=== PATIENT | male | born 1960 | race African-American/Black ===

== ENCOUNTER 2017-12-01 12:44 | Emergency (ER) | payer MEDICAID ==
[~2017-12-01] VITALS: Ht 177.8 cm; Wt 63.5 kg
[~2017-12-01 12:44] MED LIST: ACETAMINOPHEN-1 EAC1 ORAL; ZOFRAN ODT4 MG ORAL
[2017-12-01] MEDS ORDERED: PANTOPRAZOLE SO40 MG ORAL (13:04)
[2017-12-01 13:51] LABS: BASOPHILS % (AUTO) 1.3 % (0.0-2.0); EOSINOPHILS % (AUTO) 3.1 % (0.0-3.0); HEMATOCRIT 41.3 % (42.0-52.0); HEMOGLOBIN 13.7 G/DL (14.2-18.0); LYMPHOCYTES % (AUTO) 11.3 % (20.0-45.0); MEAN CORPUSCULAR VOLUME 94 FL (80-99); MONOCYTES % (AUTO) 6.7 % (1.0-10.0); NEUTROPHILS % (AUTO) 77.6 % (45.0-75.0); PLATELET COUNT 316 K/UL (150-450); RED BLOOD COUNT 4.41 M/UL (4.70-6.10); RED CELL DISTRIBUTION WIDTH 12.3 % (11.6-14.8)
[2017-12-01 13:55] LABS: APPEARANCE,URINE CLEAR; BILIRUBIN, URINE NEGATIVE (NEGATIVE); GLUCOSE, URINE (UA) NEGATIVE (NEGATIVE); KETONES,URINE NEGATIVE (NEGATIVE); LEUKOCYTE ESTERASE ,URINE 1+ (NEGATIVE); NITRITE,URINE NEGATIVE (NEGATIVE); PH,URINE 6 (4.5-8.0); PROTEIN,URINE 2+ (NEGATIVE); UROBILINOGEN,URINE 1 MG/DL (0.0-1.0)
[2017-12-01 14:01] LABS: COLOR,URINE YELLOW
[2017-12-01 14:03] LABS: INR 1.1 (0.9-1.1)
[2017-12-01 14:04] LABS: ANION GAP 9 mmol/L (5-15); BLOOD UREA NITROGEN 19 mg/dL (7-18); CARBON DIOXIDE 27 MMOL/L (21-32); CHLORIDE 101 MMOL/L (98-107); CREATININE 0.8 MG/DL (0.55-1.30); POTASSIUM 4.2 MMOL/L (3.5-5.1); SODIUM 137 MMOL/L (136-145)
[2017-12-01 14:08] LABS: ALANINE AMINOTRANSFERASE 58 U/L (12-78); ALBUMIN 2.8 G/DL (3.4-5.0); ALBUMIN/GLOBULIN RATIO 0.5 (1.0-2.7); ALKALINE PHOSPHATASE 124 U/L (46-116); ASPARTATE AMINO TRANSFERASE 33 U/L (15-37); BILIRUBIN,TOTAL 0.6 MG/DL (0.2-1.0)
[2017-12-01] MEDS ORDERED: ACETAMINOPHEN-1 EAC1 ORAL (14:30)
[2017-12-01] MEDS ORDERED: REGLAN10 MG ORAL (14:30)
[2017-12-01 14:35] VITALS: BP 128/70
--- NOTE | 2017-12-01 14:53 | Emergency Room Report ---
History of Present Illness General Chief Complaint: General Complaint Source: Patient Present Illness HPI The patient is a 57-year-old male presenting for several months of generalized complaints including myalgia, fatigue, decreased appetite, 1 episode of diarrhea , and mild abdominal discomfort. He states that the abdominal pain is intermittent and described as a 5 out of 10 dull ache. Primarily to the mid upper abdomen. He denies any provoking or relieving factors. He states that he traveled to [place] in September 2017 and then developed a cough. He states that this cough lasted for approximately 6 weeks. He was placed on an antibiotic but does not recall what it was. He states the abdominal pain began after the coughing. He was seen in this emergency department one week prior where testing was done including ultrasound and CT of the abdomen. There were signs associated with gastroenteritis. He was discharged home but states that the general symptoms have remained. He denies symptoms including fever, chills, night sweats, cough, diarrhea, constipation, melena, hematochezia Allergies: Coded Allergies: No Known Allergies (Unverified , 11/23/17) Patient History Past Medical History: see triage record Pertinent Family History: none Reviewed Nursing Documentation: PMH: Agreed; PSxH: Agreed Review of Systems All Other Systems: negative except mentioned in HPI Physical Exam Vital Signs Date Time Temp Pulse Resp B/P (MAP) Pulse Ox O2 Delivery O2 Flow Rate FiO2 12/01/17 13:00 98.0 72 17 134/80 96 Room Air 98.1 Sp02 EP Interpretation: reviewed, normal General Appearance: no apparent distress, alert, GCS 15, non-toxic Head: normocephalic, atraumatic Respiratory: chest non-tender, lungs clear, normal breath sounds, speaking full sentences Cardiovascular #1: regular rate, rhythm, no edema Gastrointestinal: normal inspection, normal bowel sounds, no mass, non- distended, tenderness - Mild RUQ Musculoskeletal: back normal, gait/station normal, normal range of motion, non- tender Neurologic: alert, oriented x3, responsive, motor strength/tone normal, sensory intact, speech normal Psychiatric: judgement/insight normal, memory normal, mood/affect normal, no suicidal/homicidal ideation Skin: normal color, no rash, warm/dry, well hydrated Medical Decision Making PA Attestation Dr. Hennessy is my supervising physician. Patient management was discussed with my supervising physician Diagnostic Impression: Primary Impression: Abdominal pain Qualified Codes: R10.9 - Unspecified abdominal pain ER Course The patient is a 57-year-old male presenting with generalized symptoms and abdominal pain Differential diagnosis considered not limited to: URI, pneumonia, cholecystitis , cholelithiasis, gastritis, appendicitis, UTI, gastroenteritis, major depression, among others Physical exam: Vitals are within normal limits. No apparent distress HEENT unremarkable Lungs are clear to auscultation bilaterally Abdomen is soft. Nondistended. Normal bowel sounds. There is slight tenderness to palpation to right upper quadrant and epigastric region. Skin warm and dry Labs show a slightly elevated white blood cell count as well as slightly elevated alkaline phosphatase. AST/ALT within normal limits Urinalysis unremarkable New abd imaging not done as he had both CT abd US 1 week prior. Admission to the hospital was discussed with the patient. He declines and states that he will follow-up with Dr. Mar tomorrow. He agrees to return to emergency department as soon as possible if he experiences symptoms including continued or worsening abdominal pain, fever, chills, melena, hematochezia, constipation, or for any other reason Laboratory Tests Test 12/01/17 13:17 12/01/17 13:20 Urine Color Yellow Urine Appearance Clear Urine pH 6 (4.5-8.0) Urine Specific [place] 1.010 (1.005-1.035) Urine Protein 2+ (NEGATIVE) H Urine Glucose (UA) Negative (NEGATIVE) Urine Ketones Negative (NEGATIVE) Urine Occult Blood 2+ (NEGATIVE) H Urine Nitrite Negative (NEGATIVE) Urine Bilirubin Negative (NEGATIVE) Urine Urobilinogen 1 MG/DL (0.0-1.0) H Urine Leukocyte Esterase 1+ (NEGATIVE) H Urine RBC 2-4 /HPF (0 - 0) H Urine WBC 0-2 /HPF (0 - 0) Urine Squamous Epithelial Cells Occasional /LPF Urine Bacteria Occasional /HPF (NONE) Urine Mucus Few /LPF (NONE/OCC) H White Blood Count 12.0 K/UL (4.8-10.8) H Red Blood Count 4.41 M/UL (4.70-6.10) L Hemoglobin 13.7 G/DL (14.2-18.0) L Hematocrit 41.3 % (42.0-52.0) L Mean Corpuscular Volume 94 FL (80-99) Mean Corpuscular Hemoglobin 31.0 PG (27.0-31.0) Mean Corpuscular Hemoglobin Concent 33.2 G/DL (32.0-36.0) Red Cell Distribution Width 12.3 % (11.6-14.8) Platelet Count 316 K/UL (150-450) Mean Platelet Volume 8.2 FL (6.5-10.1) Neutrophils (%) (Auto) 77.6 % (45.0-75.0) H Lymphocytes (%) (Auto) 11.3 % (20.0-45.0) L Monocytes (%) (Auto) 6.7 % (1.0-10.0) Eosinophils (%) (Auto) 3.1 % (0.0-3.0) H Basophils (%) (Auto) 1.3 % (0.0-2.0) Prothrombin Time 11.3 SEC (9.30-11.50) Prothrombin Time INR 1.1 (0.9-1.1) PTT 31 SEC (23-33) Sodium Level 137 MMOL/L (136-145) Potassium Level 4.2 MMOL/L (3.5-5.1) Chloride Level 101 MMOL/L (98-107) Carbon Dioxide Level 27 MMOL/L (21-32) Anion Gap 9 mmol/L (5-15) Blood Urea Nitrogen 19 mg/dL (7-18) H Creatinine 0.8 MG/DL (0.55-1.30) Estimate Glomerular Filtration Rate > 60 mL/min (>60) Glucose Level 130 MG/DL (74-106) H Calcium Level 10.0 MG/DL (8.5-10.1) Total Bilirubin 0.6 MG/DL (0.2-1.0) Aspartate Amino Transferase (AST) 33 U/L (15-37) Alanine Aminotransferase (ALT) 58 U/L (12-78) Alkaline Phosphatase 124 U/L (46-116) H Total Protein 8.5 G/DL (6.4-8.2) H Albumin 2.8 G/DL (3.4-5.0) L Globulin 5.7 g/dL Albumin/Globulin Ratio 0.5 (1.0-2.7) L Lipase 106 U/L (73-393) Lab Results Impression slight leukocytosis and elevated alk phos. AST/ALT WNL. Chest X-Ray Diagnostic Results Chest X-Ray Diagnostic Results : Chest X-Ray Ordered: Yes # of Views/Limited/Complete: 1 View Indication: Other - cough EP Interpretation: Yes DANIEL Xray: Interpretation reviewed, by supervising MD, and agrees with findings. Interpretation: no consolidation, no effusion, no pneumothorax, no acute cardiopulmonary disease Impression: No acute disease Electronically Signed by: Chaz Maharaj PA-C Last Vital Signs Date Time Temp Pulse Resp B/P (MAP) Pulse Ox O2 Delivery O2 Flow Rate FiO2 12/01/17 14:35 98.6 76 20 128/70 98 Room Air 98.6 Status: improved Disposition: HOME, SELF-CARE Condition: Improved Scripts Acetaminophen With Codeine (T#3) (TYLENOL #3 TAB*) Y Tab 1 TAB ORAL Q6HR PRN for For Pain, #10 TAB Prov: CHAZ MAHARAJ.A. 12/01/17 Metoclopramide Hcl* (REGLAN*) 10 Mg Tablet 10 MG ORAL THREE TIMES A DAY, #15 TAB Prov: CHAZ MAHARAJ P.A. 12/01/17 Patient Instructions: Abdominal Pain, Adult Additional Instructions: I discussed my findings with the patient. All questions and concerns have been answered. Treatment and medication compliance have been addressed. The patient said he will go to his PCP's office tomorrow. Return to ED if symptoms worsen, continue, new symptoms arise, or if needed for any reason. Patient verbalized understanding of discharge instructions. CHAZ MAHARAJ Dec 01, 2017 14:53
--- NOTE | 2017-12-02 11:42 | Diagnostic Imaging Report ---
Indication: Rest pain Technique: XRAY Chest 1v Comparison: None Findings: Heart size and mediastinal contours are within normal limits for technique. There is no focal consolidation, pneumothorax or pleural effusion. Degenerative change of the spine. Osseous structures demonstrate no acute abnormality. Impression: No radiographic evidence of acute cardiopulmonary disease.
== END 2017-12-01 14:35 | disposition home or self-care (01) ==
LOC: EMR 13:30
DX: R10.84 Generalized abdominal pain (principal)
CPT/HCPCS: 36415; 71045; 80053; 81003; 83690; 85025; 85610; 85730; 96374; 96375; 99284; J2405

== ENCOUNTER 2018-03-24 11:42 | Emergency (ER) | payer MEDICAID ==
[~2018-03-24] VITALS: Ht 177.8 cm; Wt 68.0 kg
[~2018-03-24 11:42] MED LIST changes: +PANTOPRAZOLE SO40 MG ORAL; +REGLAN10 MG ORAL
[2018-03-24 11:50] VITALS: BP 147/76
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
[2018-03-24] MEDS ORDERED: ROBAXIN500 MG PO (12:25)
[2018-03-24] MEDS ORDERED: IBUPROFEN600 MG ORAL (12:25)
[2018-03-24] MEDS ORDERED: LIDODERM700 M1 TOPIC (12:25)
[2018-03-24 12:59] VITALS: BP 147/76
== END 2018-03-24 13:00 | disposition home or self-care (01) ==
LOC: EMR 12:28
DX: S16.1XXA Strain of muscle, fascia and tendon at neck level, initial encounter (principal); V43.52XA Car driver injured in collision with other type car in traffic accident, initial encounter; Y93.89 Activity, other specified; Y92.411 Interstate highway as the place of occurrence of the external cause; R20.0 Anesthesia of skin; M62.830 Muscle spasm of back; R32 Unspecified urinary incontinence
CPT/HCPCS: 99283

== ENCOUNTER 2018-05-07 03:34 | Emergency (ER) | payer MEDICAID ==
[~2018-05-07] VITALS: Ht 170.2 cm; Wt 72.6 kg
[~2018-05-07 03:34] MED LIST changes: +IBUPROFEN600 MG ORAL; +LIDODERM700 M1 TOPIC; +ROBAXIN500 MG PO
[2018-05-07] MEDS ORDERED: Mylanta II UD 30ml ORAL ONE (04:00)
[2018-05-07] MEDS ORDERED: Lidocaine 2% Visc 15ml soln ORAL ONE (04:00)
[2018-05-07] MEDS ORDERED: Dicyclomine HCl 10mg/5ml oral soln ORAL ONE (04:00)
[2018-05-07 04:21] VITALS: BP 153/65
[2018-05-07 04:26] LABS: BASOPHILS % (AUTO) 1.1 % (0.0-2.0); EOSINOPHILS % (AUTO) 0.9 % (0.0-3.0); HEMATOCRIT 44.8 % (42.0-52.0); HEMOGLOBIN 15.3 G/DL (14.2-18.0); LYMPHOCYTES % (AUTO) 18.7 % (20.0-45.0); MEAN CORPUSCULAR VOLUME 93 FL (80-99); MONOCYTES % (AUTO) 5.1 % (1.0-10.0); NEUTROPHILS % (AUTO) 74.2 % (45.0-75.0); PLATELET COUNT 164 K/UL (150-450); RED BLOOD COUNT 4.82 M/UL (4.70-6.10); RED CELL DISTRIBUTION WIDTH 10.7 % (11.6-14.8); WHITE BLOOD COUNT 7.7 K/UL (4.8-10.8)
[2018-05-07 04:39] LABS: ANION GAP 12 mmol/L (5-15); BLOOD UREA NITROGEN 27 mg/dL (7-18); CALCIUM 9.2 MG/DL (8.5-10.1); CARBON DIOXIDE 26 MMOL/L (21-32); CHLORIDE 101 MMOL/L (98-107); CREATININE 0.9 MG/DL (0.55-1.30); POTASSIUM 3.2 MMOL/L (3.5-5.1); SODIUM 139 MMOL/L (136-145)
[2018-05-07 04:44] LABS: ALANINE AMINOTRANSFERASE 32 U/L (12-78); ALBUMIN 4.1 G/DL (3.4-5.0); ALBUMIN/GLOBULIN RATIO 1.2 (1.0-2.7); ALKALINE PHOSPHATASE 81 U/L (46-116); ASPARTATE AMINO TRANSFERASE 22 U/L (15-37); BILIRUBIN,TOTAL 0.6 MG/DL (0.2-1.0)
[2018-05-07 04:54] LABS: APPEARANCE,URINE CLEAR; BILIRUBIN, URINE NEGATIVE (NEGATIVE); COLOR,URINE PALE YELLOW; GLUCOSE, URINE (UA) NEGATIVE (NEGATIVE); KETONES,URINE 3+ (NEGATIVE); LEUKOCYTE ESTERASE ,URINE NEGATIVE (NEGATIVE); NITRITE,URINE NEGATIVE (NEGATIVE); PH,URINE 8 (4.5-8.0); PROTEIN,URINE NEGATIVE (NEGATIVE); UROBILINOGEN,URINE NORMAL MG/DL (0.0-1.0)
[2018-05-07] MEDS ORDERED: Sodium Chloride 500ML 500 ML IV ONE (05:00)
--- NOTE | 2018-05-07 05:27 | Emergency Room Report ---
History of Present Illness General Chief Complaint: Abdominal Pain Source: Patient, Medical Record Present Illness HPI Patient's 57-year-old male presented after increased generalized abdominal pain after eating spicy food. Patient had the reported having increased generalized pain he had prior history of gallbladder sludge. He denied any black or bloody stools. He had not been having difficulty with urination. He denied any shortness of breath. Allergies: Coded Allergies: No Known Allergies (Unverified , 11/23/17) Patient History Reviewed Nursing Documentation: PMH: Agreed; PSxH: Agreed Review of Systems All Other Systems: negative except mentioned in HPI Physical Exam Vital Signs Date Time Temp Pulse Resp B/P (MAP) Pulse Ox O2 Delivery O2 Flow Rate FiO2 05/07/18 03:47 98.5 77 25 152/62 98 Room Air 98.4 Sp02 EP Interpretation: reviewed, normal General Appearance: normal inspection, well appearing, no apparent distress, alert, GCS 15, non-toxic Head: atraumatic ENT: normal ENT inspection, hearing grossly normal, normal voice Neck: normal inspection, full range of motion, supple, no bony tend Respiratory: normal inspection, lungs clear, normal breath sounds, no respiratory distress, no retraction, no wheezing Cardiovascular #1: regular rate, rhythm, no edema Gastrointestinal: normal inspection, normal bowel sounds, non tender, soft, no guarding, no hernia Genitourinary: no CVA tenderness Musculoskeletal: normal inspection, back normal, normal range of motion Neurologic: normal inspection, alert, oriented x3, responsive, toll test worker III-XII nml as tested, speech normal Psychiatric: normal inspection, judgement/insight normal, mood/affect normal Skin: normal inspection, normal color, no rash Medical Decision Making Diagnostic Impression: Primary Impression: Abdominal pain Additional Impression: Gastritis ER Course Patient presented for abdominal pain. Differential diagnoses included ischemic bowel, appendicitis, perforated viscus, abdominal aortic aneurysm, inferior myocardial infarction, viral gastroenteritis. Because of complexity of patient' s case laboratory testing and imaging studies were ordered. The laboratory testing was unremarkable. Patient was given GI cocktail improvement in symptoms. Patient was given prescription for acid blockers. He is advised to avoid spicy food.The patient is advised to follow up with primary care doctor in 1-2 days. Patient is advised to return if any worsening condition or if any changes in status that are concerning. This report is dictated with [employer] grease buffer software which may occasionally lead to discrepancies related to use of this software. Labs Test 05/07/18 04:14 05/07/18 04:44 White Blood Count 7.7 K/UL (4.8-10.8) Red Blood Count 4.82 M/UL (4.70-6.10) Hemoglobin 15.3 G/DL (14.2-18.0) Hematocrit 44.8 % (42.0-52.0) Mean Corpuscular Volume 93 FL (80-99) Mean Corpuscular Hemoglobin 31.9 PG (27.0-31.0) Mean Corpuscular Hemoglobin Concent 34.3 G/DL (32.0-36.0) Red Cell Distribution Width 10.7 % (11.6-14.8) Platelet Count 164 K/UL (150-450) Mean Platelet Volume 10.2 FL (6.5-10.1) Neutrophils (%) (Auto) 74.2 % (45.0-75.0) Lymphocytes (%) (Auto) 18.7 % (20.0-45.0) Monocytes (%) (Auto) 5.1 % (1.0-10.0) Eosinophils (%) (Auto) 0.9 % (0.0-3.0) Basophils (%) (Auto) 1.1 % (0.0-2.0) Sodium Level 139 MMOL/L (136-145) Potassium Level 3.2 MMOL/L (3.5-5.1) Chloride Level 101 MMOL/L (98-107) Carbon Dioxide Level 26 MMOL/L (21-32) Anion Gap 12 mmol/L (5-15) Blood Urea Nitrogen 27 mg/dL (7-18) Creatinine 0.9 MG/DL (0.55-1.30) Estimat Glomerular Filtration Rate > 60 mL/min (>60) Glucose Level 154 MG/DL (74-106) Calcium Level 9.2 MG/DL (8.5-10.1) Total Bilirubin 0.6 MG/DL (0.2-1.0) Aspartate Amino Transf (AST/SGOT) 22 U/L (15-37) Alanine Aminotransferase (ALT/SGPT) 32 U/L (12-78) Alkaline Phosphatase 81 U/L (46-116) Troponin I 0.016 ng/mL (0.000-0.056) Total Protein 7.6 G/DL (6.4-8.2) Albumin 4.1 G/DL (3.4-5.0) Globulin 3.5 g/dL Albumin/Globulin Ratio 1.2 (1.0-2.7) Lipase 115 U/L (73-393) Urine Color Pale yellow Urine Appearance Clear Urine pH 8 (4.5-8.0) Urine Specific [place] 1.015 (1.005-1.035) Urine Protein Negative (NEGATIVE) Urine Glucose (UA) Negative (NEGATIVE) Urine Ketones 3+ (NEGATIVE) Urine Blood Negative (NEGATIVE) Urine Nitrite Negative (NEGATIVE) Urine Bilirubin Negative (NEGATIVE) Urine Urobilinogen Normal MG/DL (0.0-1.0) Urine Leukocyte Esterase Negative (NEGATIVE) Last Vital Signs Date Time Temp Pulse Resp B/P (MAP) Pulse Ox O2 Delivery O2 Flow Rate FiO2 05/07/18 04:21 98.4 63 25 153/65 98 Room Air 98.4 Status: improved Disposition: HOME, SELF-CARE Condition: Stable Scripts Dicyclomine Hcl* (DICYCLOMINE HCL*) 10 Mg Capsule 10 MG PO QID, #30 CAP Prov: Javier Wilson MD 05/07/18 Pantoprazole* (PANTOPRAZOLE*) 40 Mg Tablet. 40 MG ORAL DAILY, #30 TAB Prov: Javier Wilson MD 05/07/18 Referrals: [facility],REFERRING (PCP) Javier Wilson MD May 07, 2018 05:27
[2018-05-07] MEDS ORDERED: PANTOPRAZOLE SO40 MG ORAL (05:41)
[2018-05-07] MEDS ORDERED: DICYCLOMINE HCL10 MG PO (05:41)
[2018-05-07 05:45] VITALS: BP 153/65
== END 2018-05-07 05:45 | disposition home or self-care (01) ==
LOC: EMR 03:49
DX: K29.70 Gastritis, unspecified, without bleeding (principal)
CPT/HCPCS: 36415; 80053; 81003; 83690; 84484; 85025; 93005; 96374; 99284; J2405; J7040; J8499

== ENCOUNTER 2018-06-27 00:34 | Emergency (ER) | payer MEDICAID ==
[~2018-06-27] VITALS: Ht 177.8 cm; Wt 68.0 kg
[~2018-06-27 00:34] MED LIST changes: +DICYCLOMINE HCL10 MG PO
[2018-06-27 00:45] VITALS: BP 164/68
--- NOTE | 2018-06-27 00:59 | Emergency Room Report ---
History of Present Illness General Chief Complaint: Abdominal Pain Source: Patient Present Illness HPI Is a 57-year-old male with a history of gastric reflux. He takes omeprazole. He had endoscopy and colonoscopy done already. He presents with chief complaint abdominal pain. Onset tonight. Sharp in nature. One episode vomiting. No fever or chills. Pain is crampy sharp. Vomiting is nonbloody. Denies any other complaint. Pain is 7 out of 10. Allergies: Coded Allergies: No Known Allergies (Unverified , 11/23/17) Patient History Past Medical History: see triage record, old chart reviewed Past Surgical History: other Pertinent Family History: none Social History: Denies: smoking Immunizations: other Reviewed Nursing Documentation: PMH: Agreed; PSxH: Agreed Nursing Documentation-PMH Past Medical History: No History, Except For Review of Systems Eye: Denies: eye pain, blurred vision ENT: Denies: ear pain, nose congestion, throat swelling Respiratory: Denies: cough, shortness of breath Cardiovascular: Denies: chest pain, palpitations Gastrointestinal: Reports: abdominal pain, nausea, vomiting; Denies: diarrhea Musculoskeletal: Denies: back pain, joint pain Skin: Denies: rash Neurological: Denies: headache, numbness Endocrine: Denies: increased thirst, increased urine Hematologic/Lymphatic: Denies: easy bruising All Other Systems: negative except mentioned in HPI Physical Exam Vital Signs Date Time Temp Pulse Resp B/P (MAP) Pulse Ox O2 Delivery O2 Flow Rate FiO2 06/27/18 00:39 97.5 63 16 163/80 100 Room Air vitals with high blood pressure Sp02 EP Interpretation: reviewed, normal General Appearance: well appearing, no apparent distress, alert Head: normocephalic, atraumatic Eyes: bilateral eye PERRL, bilateral eye EOMI ENT: hearing grossly normal, normal pharynx Neck: full range of motion, supple, no meningismus Respiratory: chest non-tender, lungs clear, normal breath sounds Cardiovascular #1: regular rate, rhythm, no murmur Gastrointestinal: normal bowel sounds, no mass, no organomegaly, no bruit, non- distended, abnormal bowel sounds - Hyperactive, tenderness - Mild Musculoskeletal: back normal, gait/station normal, normal range of motion Psychiatric: mood/affect normal Skin: warm/dry Medical Decision Making Diagnostic Impression: Primary Impression: Abdominal pain Qualified Codes: R10.84 - Generalized abdominal pain Additional Impression: Nausea & vomiting Qualified Codes: R11.2 - Nausea with vomiting, unspecified ER Course Patient presents with abdominal pain with nausea and vomiting. Based on exam, he'll probably have diarrhea later. No evidence of an acute abdomen or obstruction. He felt better now. We'll discharge home. Lab Results Impression labs are normal Last Vital Signs Date Time Temp Pulse Resp B/P (MAP) Pulse Ox O2 Delivery O2 Flow Rate FiO2 06/27/18 00:39 97.5 63 16 163/80 100 Room Air Status: improved Disposition: HOME, SELF-CARE Condition: Stable Scripts Ondansetron (Zofran) 4 Mg Tablet 4 MG ORAL Q6H PRN for Nausea & Vomiting, #10 TAB 0 Refills Prov: Wesley Costello MD 06/27/18 Referrals: Fabiano Mar MD (PCP) Patient Instructions: Abdominal Pain, Adult Additional Instructions: Follow-up with your doctor in 2-3 days if not better. Return if symptom worsen. Wesley Costello MD Jun 27, 2018 00:59
[2018-06-27] MEDS ORDERED: Ketorolac 30mg Inj IV ONE (01:00)
[2018-06-27 01:17] LABS: BILIRUBIN, URINE NEGATIVE (NEGATIVE); COLOR,URINE PALE YELLOW; EOSINOPHILS % (AUTO) 1.5 % (0.0-3.0); GLUCOSE, URINE (UA) NEGATIVE (NEGATIVE); HEMOGLOBIN 15.3 G/DL (14.2-18.0); KETONES,URINE 1+ (NEGATIVE); LEUKOCYTE ESTERASE ,URINE NEGATIVE (NEGATIVE); LYMPHOCYTES % (AUTO) 15.7 % (20.0-45.0); MEAN CORPUSCULAR VOLUME 92 FL (80-99); MONOCYTES % (AUTO) 4.5 % (1.0-10.0); NEUTROPHILS % (AUTO) 77.3 % (45.0-75.0); NITRITE,URINE NEGATIVE (NEGATIVE); PH,URINE 7 (4.5-8.0); PLATELET COUNT 166 K/UL (150-450); RED BLOOD COUNT 4.78 M/UL (4.70-6.10); RED CELL DISTRIBUTION WIDTH 10.8 % (11.6-14.8); UROBILINOGEN,URINE NORMAL MG/DL (0.0-1.0); WHITE BLOOD COUNT 8.8 K/UL (4.8-10.8)
[2018-06-27 01:26] LABS: APPEARANCE,URINE CLEAR; PROTEIN,URINE NEGATIVE (NEGATIVE)
[2018-06-27 01:27] LABS: ANION GAP 12 mmol/L (5-15); BLOOD UREA NITROGEN 23 mg/dL (7-18); CALCIUM 9.1 MG/DL (8.5-10.1); CARBON DIOXIDE 27 MMOL/L (21-32); CHLORIDE 101 MMOL/L (98-107); CREATININE 1.1 MG/DL (0.55-1.30); POTASSIUM 3.3 MMOL/L (3.5-5.1); SODIUM 139 MMOL/L (136-145)
[2018-06-27 01:32] LABS: ALANINE AMINOTRANSFERASE 27 U/L (12-78); ALBUMIN 3.8 G/DL (3.4-5.0); ALBUMIN/GLOBULIN RATIO 0.9 (1.0-2.7); ALKALINE PHOSPHATASE 83 U/L (46-116); ASPARTATE AMINO TRANSFERASE 26 U/L (15-37); BILIRUBIN,TOTAL 0.6 MG/DL (0.2-1.0)
[2018-06-27] MEDS ORDERED: ZOFRAN4 MG ORAL (01:52)
[2018-06-27 02:09] VITALS: BP 149/64
[2018-06-28] MEDS ORDERED: SUCRALFATE1 GM ORAL (02:39)
== END 2018-06-27 02:10 | disposition home or self-care (01) ==
LOC: EMR 00:49
DX: R10.9 Unspecified abdominal pain (principal); R11.2 Nausea with vomiting, unspecified
CPT/HCPCS: 36415; 80053; 81003; 83690; 85025; 96361; 96374; 96375; 99284; J1885; J2405

== ENCOUNTER 2018-06-28 00:32 | Emergency (ER) | payer MEDICAID ==
[~2018-06-28] VITALS: Ht 177.8 cm; Wt 68.0 kg
[~2018-06-28 00:32] MED LIST changes: +ZOFRAN4 MG ORAL
[2018-06-28 00:44] VITALS: BP 165/76
--- NOTE | 2018-06-28 00:54 | Emergency Room Report ---
History of Present Illness General Chief Complaint: Abdominal Pain Source: Patient Present Illness HPI Is a 57-year-old male with a history of GERD. He is taking a proton pump inhibitor already. He had endoscopy and colonoscopy done already. Previous CT scan done. He was seen here yesterday for this. Labs are unremarkable. Better after pain medication. He said symptom came back today. Epigastric area up to his chest. Burning sensation. No chest pain. No nausea no vomiting. No fever or chills. No diarrhea. Pain is 7 out of 10. Allergies: Coded Allergies: No Known Allergies (Unverified , 11/23/17) Patient History Past Medical History: see triage record, old chart reviewed Past Surgical History: other Pertinent Family History: none Social History: Denies: smoking Immunizations: other Reviewed Nursing Documentation: PMH: Agreed; PSxH: Agreed Review of Systems Eye: Denies: eye pain, blurred vision ENT: Denies: ear pain, nose congestion, throat swelling Respiratory: Denies: cough, shortness of breath Cardiovascular: Denies: chest pain, palpitations Gastrointestinal: Reports: abdominal pain; Denies: diarrhea, nausea, vomiting Musculoskeletal: Denies: back pain, joint pain Skin: Denies: rash Neurological: Denies: headache, numbness Endocrine: Denies: increased thirst, increased urine Hematologic/Lymphatic: Denies: easy bruising All Other Systems: negative except mentioned in HPI Physical Exam Vital Signs Date Time Temp Pulse Resp B/P (MAP) Pulse Ox O2 Delivery O2 Flow Rate FiO2 06/28/18 00:35 98.1 55 18 165/76 99 Room Air vitals normal except for htn Sp02 EP Interpretation: reviewed, normal General Appearance: well appearing, no apparent distress, alert Head: normocephalic, atraumatic Eyes: bilateral eye PERRL, bilateral eye EOMI ENT: hearing grossly normal, normal pharynx Neck: full range of motion, supple, no meningismus Respiratory: chest non-tender, lungs clear, normal breath sounds Cardiovascular #1: regular rate, rhythm, no murmur Gastrointestinal: normal bowel sounds, non tender, no mass, no organomegaly, no bruit, non-distended Musculoskeletal: back normal, gait/station normal, normal range of motion Psychiatric: mood/affect normal Skin: warm/dry Medical Decision Making Diagnostic Impression: Primary Impression: Abdominal pain Qualified Codes: R10.13 - Epigastric pain Additional Impression: Gastritis Qualified Codes: K29.00 - Acute gastritis without bleeding ER Course Patient presents with epigastric pain. This consistent with GERD. He's on a proton pump inhibitor already. No evidence of an acute abdomen. No evidence of obstruction or appendicitis. Patient is resting comfortably. Pain resolved. CT/MRI/US Diagnostic Results CT/MRI/US Diagnostic Results : Imaging Test Ordered: CT abdomen and pelvis Impression negative per radiologist Last Vital Signs Date Time Temp Pulse Resp B/P (MAP) Pulse Ox O2 Delivery O2 Flow Rate FiO2 06/28/18 00:44 55 18 Room Air 06/28/18 00:44 98.1 165/76 99 Status: improved Disposition: HOME, SELF-CARE Condition: Stable Scripts Sucralfate* (CARAFATE*) 1 Gm Tablet 1 GM ORAL FOUR TIMES A DAY, #30 TAB Prov: Wesley Costello MD 06/28/18 Additional Instructions: Follow-up with your Dr. in 2-3 days. Return if symptom worsen. Wesley Costello MD Jun 28, 2018 00:54
[2018-06-28] MEDS ORDERED: Mylanta II UD 30ml ORAL ONE (01:00)
[2018-06-28 02:18] VITALS: BP 152/74
[2018-06-28] MEDS ORDERED: SUCRALFATE1 GM ORAL (02:39)
[2018-06-28 02:44] VITALS: BP 148/76
[2018-06-28 02:45] VITALS: BP 148/76
== END 2018-06-28 02:48 | disposition home or self-care (01) ==
LOC: EMR 00:57
DX: K29.70 Gastritis, unspecified, without bleeding (principal); K21.9 Gastro-esophageal reflux disease without esophagitis
CPT/HCPCS: 74176; 99284

== ENCOUNTER 2018-06-29 03:26 | Inpatient (IN) | payer MEDICAID ==
[~2018-06-29] VITALS: Ht 177.8 cm; Wt 67.8 kg
[~2018-06-29 03:26] MED LIST changes: +SUCRALFATE1 GM ORAL
--- NOTE | 2018-06-29 03:57 | Emergency Room Report ---
History of Present Illness General Chief Complaint: Abdominal Pain Source: Patient Present Illness HPI This is the third night the patient is presented with abdominal pain. He also was evaluated in May for similar problem. Last night he had in the abdominal CT scan. He was also given Mylanta. He's been given medications been taking but it hasn't helped with the pain. He feels burning. Is vomiting. His mouth is dry at this time and is anxious and feels like he is dying. He has tingling of his hands and feet. Denies any vomiting of blood or melena. He does drink alcohol - wine with meals. He was given the diagnosis of gastritis. Pain is severe /10, epigastric, not radiating, burning, constant, not helped by meds. He has had endoscopy and colonoscopy and was told they were normal. CT from 06/28: Impression: Mild inflammatory changes of the root of the mesentery and around the tasia hepatis. The findings are nonspecific. The gallbladder is contracted. No inflammatory changes suggested of the pancreas. Clinical correlation is required. CT from 11/2107: Impression: Underdistention versus mild wall thickening of the transverse, descending and sigmoid colon. Mild nonspecific colitis not excluded. Clinical correlation recommended. No pericholecystic inflammatory changes. Gallbladder sludge demonstrated by ultrasound. Clinical correlation recommended. Hepatic cysts. Mildly prominent prostate and seminal vesicles. Correlation with PSA recommended. Further evaluation recommended as indicated. Had ultrasound in November which revealed + Henao's sign and gall bladder sludge, but no evidence of cholecystitis. No URI sy, sore throat, raw seafood, blood exposures, travel, ill contacts. Allergies: Coded Allergies: No Known Allergies (Unverified , 11/23/17) Patient History Past Medical History: see triage record Social History: Reports: alcohol use; Denies: smoking, drug use Social History Narrative from home Reviewed Nursing Documentation: PMH: Agreed; PSxH: Agreed Nursing Documentation-PMH Hx Gastrointestinal Problems: Yes - GERD Review of Systems All Other Systems: negative except mentioned in HPI Physical Exam Vital Signs Date Time Temp Pulse Resp B/P (MAP) Pulse Ox O2 Delivery O2 Flow Rate FiO2 06/29/18 03:46 97.9 80 16 140/80 98 Room Air Sp02 EP Interpretation: reviewed, normal General Appearance: GCS 15, moderate distress Head: normocephalic, atraumatic Eyes: bilateral eye normal inspection, bilateral eye PERRL ENT: dry mucus membranes Neck: supple Respiratory: chest non-tender, lungs clear, normal breath sounds Cardiovascular #1: regular rate, rhythm, no edema Cardiovascular #2: 2+ radial (R) Gastrointestinal: abnormal bowel sounds, guarding - epigastric area, tenderness , decreased bowel sounds Genitourinary: no CVA tenderness Musculoskeletal: digits/nails normal, normal range of motion, no calf tenderness Neurologic: oriented x3, grossly normal - with dffuse weakness Psychiatric: anxious Skin: no rash Medical Decision Making Diagnostic Impression: Primary Impression: Abdominal pain Qualified Codes: R10.13 - Epigastric pain Additional Impressions: Hepatitis Hypokalemia ER Course Patient presents with epigastric pain and vomiting. He's been seen in the past for similar. At this time there appears to be an element of hyperventilation. We need to exclude acute myocardial infarction at this time. Be treated with IV hydration, Zofran and a GI cocktail. Labs will be repeated this time. EKG normal. CXR unremarkable. Labs with normal WBC. ESR normal. UA with ketones. New elevated LFTs. CT and prior U/S reviewed. Still severe pain, now 9/10. Morphine ordered. Continued hydration. Patient improved, but still with epigastric, RUQ tenderness. Due to CT with mesenteric/portal inflammation and new elevated LFTs, patient admitted for further evaluation. Admit med Dr. Bruce. Laboratory Tests Test 06/29/18 04:00 06/29/18 04:50 White Blood Count 6.4 K/UL (4.8-10.8) Red Blood Count 4.98 M/UL (4.70-6.10) Hemoglobin 15.3 G/DL (14.2-18.0) Hematocrit 45.9 % (42.0-52.0) Mean Corpuscular Volume 92 FL (80-99) Mean Corpuscular Hemoglobin 30.7 PG (27.0-31.0) Mean Corpuscular Hemoglobin Concent 33.3 G/DL (32.0-36.0) Red Cell Distribution Width 11.0 % (11.6-14.8) L Platelet Count 178 K/UL (150-450) Mean Platelet Volume 10.2 FL (6.5-10.1) H Neutrophils (%) (Auto) 62.2 % (45.0-75.0) Lymphocytes (%) (Auto) 27.9 % (20.0-45.0) Monocytes (%) (Auto) 6.5 % (1.0-10.0) Eosinophils (%) (Auto) 2.4 % (0.0-3.0) Basophils (%) (Auto) 1.1 % (0.0-2.0) Erythrocyte Sedimentation Rate Pending Prothrombin Time 10.3 SEC (9.30-11.50) Prothrombin Time INR 1.0 (0.9-1.1) PTT 24 SEC (23-33) Sodium Level 138 MMOL/L (136-145) Potassium Level 3.1 MMOL/L (3.5-5.1) L Chloride Level 99 MMOL/L (98-107) Carbon Dioxide Level 24 MMOL/L (21-32) Anion Gap 15 mmol/L (5-15) Blood Urea Nitrogen 20 mg/dL (7-18) H Creatinine 0.9 MG/DL (0.55-1.30) Estimate Glomerular Filtration Rate > 60 mL/min (>60) Glucose Level 127 MG/DL (74-106) H Calcium Level 9.3 MG/DL (8.5-10.1) Total Bilirubin 1.1 MG/DL (0.2-1.0) H Direct Bilirubin 0.5 MG/DL (0.0-0.3) H Aspartate Amino Transferase (AST) 305 U/L (15-37) H Alanine Aminotransferase (ALT) 478 U/L (12-78) H Alkaline Phosphatase 205 U/L (46-116) H Total Creatine Kinase 126 U/L (26-308) Troponin I 0.014 ng/mL (0.000-0.056) Total Protein 8.5 G/DL (6.4-8.2) H Albumin 3.9 G/DL (3.4-5.0) Globulin 4.6 g/dL Albumin/Globulin Ratio 0.8 (1.0-2.7) L Lipase 175 U/L (73-393) Urine Color Pending Urine Appearance Pending Urine pH Pending Urine Specific [place] Pending Urine Protein Pending Urine Glucose (UA) Pending Urine Ketones Pending Urine Blood Pending Urine Nitrite Pending Urine Bilirubin Pending Urine Urobilinogen Pending Urine Leukocyte Esterase Pending EKG Diagnostic Results Rate: normal Rhythm: NSR ST Segments: no acute changes - voltage for LVH Rhythm Strip Diag. Results EP Interpretation: yes Rhythm: NSR, no PVC's, no ectopy Chest X-Ray Diagnostic Results Chest X-Ray Diagnostic Results : Chest X-Ray Ordered: Yes # of Views/Limited/Complete: 1 View Indication: Other EP Interpretation: Yes Interpretation: no consolidation, no effusion, no pneumothorax Impression: No acute disease Electronically Signed by: Electronically signed by Andrez Braun MD Last Vital Signs Date Time Temp Pulse Resp B/P (MAP) Pulse Ox O2 Delivery O2 Flow Rate FiO2 06/29/18 07:10 98.0 66 16 174/74 100 Room Air Status: improved Disposition: ADMITTED INPATIENT Condition: Serious Andrez Braun MD Jun 29, 2018 03:57
[2018-06-29] MEDS ORDERED: Mylanta II UD 30ml ORAL ONE (04:00)
[2018-06-29] MEDS ORDERED: Lidocaine 2% Visc 15ml soln ORAL ONE (04:00)
[2018-06-29 04:14] LABS: BASOPHILS % (AUTO) 1.1 % (0.0-2.0); EOSINOPHILS % (AUTO) 2.4 % (0.0-3.0); HEMATOCRIT 45.9 % (42.0-52.0); HEMOGLOBIN 15.3 G/DL (14.2-18.0); LYMPHOCYTES % (AUTO) 27.9 % (20.0-45.0); MEAN CORPUSCULAR VOLUME 92 FL (80-99); MONOCYTES % (AUTO) 6.5 % (1.0-10.0); NEUTROPHILS % (AUTO) 62.2 % (45.0-75.0); PLATELET COUNT 178 K/UL (150-450); RED BLOOD COUNT 4.98 M/UL (4.70-6.10); WHITE BLOOD COUNT 6.4 K/UL (4.8-10.8)
[2018-06-29 04:51] LABS: ANION GAP 15 mmol/L (5-15); BLOOD UREA NITROGEN 20 mg/dL (7-18); CALCIUM 9.3 MG/DL (8.5-10.1); CARBON DIOXIDE 24 MMOL/L (21-32); CHLORIDE 99 MMOL/L (98-107); CREATININE 0.9 MG/DL (0.55-1.30); POTASSIUM 3.1 MMOL/L (3.5-5.1); SODIUM 138 MMOL/L (136-145)
[2018-06-29 05:00] VITALS: BP 161/62
[2018-06-29] MEDS ORDERED: Morphine Sulfate 4mg/ml Inj (IV/IM USE ONLY) IVP ONE ×2 (05:00→09:45)
[2018-06-29 05:02] LABS: ALANINE AMINOTRANSFERASE 478 U/L (12-78); ALBUMIN 3.9 G/DL (3.4-5.0); ALBUMIN/GLOBULIN RATIO 0.8 (1.0-2.7); ALKALINE PHOSPHATASE 205 U/L (46-116); ASPARTATE AMINO TRANSFERASE 305 U/L (15-37); BILIRUBIN,TOTAL 1.1 MG/DL (0.2-1.0); CREATINE KINASE 126 U/L (26-308)
[2018-06-29 05:04] LABS: BILIRUBIN,DIRECT 0.5 MG/DL (0.0-0.3)
[2018-06-29 05:15] LABS: APPEARANCE,URINE CLEAR; BILIRUBIN, URINE NEGATIVE (NEGATIVE); COLOR,URINE PALE YELLOW; GLUCOSE, URINE (UA) NEGATIVE (NEGATIVE); KETONES,URINE 4+ (NEGATIVE); LEUKOCYTE ESTERASE ,URINE NEGATIVE (NEGATIVE); NITRITE,URINE NEGATIVE (NEGATIVE); PH,URINE 7 (4.5-8.0); PROTEIN,URINE NEGATIVE (NEGATIVE); UROBILINOGEN,URINE NORMAL MG/DL (0.0-1.0)
[2018-06-29 07:10] VITALS: BP 174/74
[2018-06-29] MEDS ORDERED: Morphine Sulfate 2mg/ml Inj IVP PRN (10:00)
[2018-06-29 10:15] VITALS: BP 174/83
[2018-06-29] MEDS: Enoxaparin 40mg Inj SUBQ SCH (10:39)
[2018-06-29 12:00] VITALS: BP 166/74
[2018-06-29] MEDS: HydrALAZINE 25mg tab ORAL PRN (13:08)
[2018-06-29] MEDS: traMADol 50mg tab ORAL PRN ×2 (13:09→23:13)
--- NOTE | 2018-06-29 15:00 | General Progress Note ---
Assessment/Plan Assessment/Plan GI CONSULT Assessment - Recurrent epigastric pain and RUQ TTP - sudden rise in LFT in few days - cholelithiasis - suspect biliary colic/passed stone Recommendations - follow symptoms - follow labs - Surgical evaluation - check HIDA - check hepatitis w/u Thank You Any Carolina MD Subjective Allergies: Coded Allergies: No Known Allergies (Unverified , 11/23/17) Objective Last 24 Hour Vital Signs Date Time Temp Pulse Resp B/P (MAP) Pulse Ox O2 Delivery O2 Flow Rate FiO2 06/29/18 13:08 166/74 06/29/18 12:00 98.9 65 18 166/74 (104) 98 06/29/18 10:31 62 174/83 06/29/18 10:19 Room Air 06/29/18 10:15 98.9 62 18 174/83 (113) 100 06/29/18 09:35 98.0 79 16 177/95 100 Room Air 06/29/18 07:10 98.0 66 16 174/74 100 Room Air 06/29/18 05:30 98.0 06/29/18 05:00 98.7 64 16 161/62 100 Room Air 06/29/18 04:00 80 16 Room Air 06/29/18 03:46 97.9 80 16 140/80 98 Room Air Laboratory Tests 06/29/18 04:00: White Blood Count 6.4, Red Blood Count 4.98, Hemoglobin 15.3, Hematocrit 45.9, Mean Corpuscular Volume 92, Mean Corpuscular Hemoglobin 30.7, Mean Corpuscular Hemoglobin Concent 33.3, Red Cell Distribution Width 11.0L, Platelet Count 178, Mean Platelet Volume 10.2H, Neutrophils (%) (Auto) 62.2, Lymphocytes (%) (Auto) 27.9, Monocytes (%) (Auto) 6.5, Eosinophils (%) (Auto) 2.4, Basophils (%) (Auto ) 1.1, Erythrocyte Sedimentation Rate 9, Prothrombin Time 10.3, Prothromb Time International Ratio 1.0, Activated Partial Thromboplast Time 24, Sodium Level 138, Potassium Level 3.1L, Chloride Level 99, Carbon Dioxide Level 24, Anion Gap 15, Blood Urea Nitrogen 20H, Creatinine 0.9, Estimat Glomerular Filtration Rate > 60, Glucose Level 127H, Calcium Level 9.3, Total Bilirubin 1.1H, Direct Bilirubin 0.5H, Aspartate Amino Transf (AST/SGOT) 305H, Alanine Aminotransferase (ALT/SGPT) 478H, Alkaline Phosphatase 205H, Total Creatine Kinase 126, Troponin I 0.014, Total Protein 8.5H, Albumin 3.9, Globulin 4.6, Albumin/Globulin Ratio 0.8L, Lipase 175 06/29/18 04:50: Urine Color Pale yellow, Urine Appearance Clear, Urine pH 7, Urine Specific [place] 1.005, Urine Protein Negative, Urine Glucose (UA) Negative, Urine Ketones 4+H, Urine Blood Negative, Urine Nitrite Negative, Urine Bilirubin Negative, Urine Urobilinogen Normal, Urine Leukocyte Esterase Negative 06/29/18 11:45: Urine Opiates Screen PositiveH, Urine Barbiturates Screen Negative, Phencyclidine (PCP) Screen Negative, Urine Amphetamines Screen Negative, Urine Benzodiazepines Screen Negative, Urine Cocaine Screen Negative, Urine Marijuana (THC) Screen Negative 06/29/18 13:40: Troponin I [Pending], Anti-Nuclear Antibody Screen [Pending], Anti- Mitochondrial Antibody [Pending], F-Actin IgG Antibody [Pending], Hepatitis B Surface Antigen [Pending], Hepatitis B Surface Antibody, Quant [Pending], Hepatitis C Antibody [Pending] Height (Feet): 5 Height (Inches): 8.00 Weight (Pounds): 160 Any Carolina MD Jun 29, 2018 15:00
--- NOTE | 2018-06-29 15:09 | Cardiac Electrophysiology PN ---
Subjective Subjective [id number] Objective Last 24 Hour Vital Signs Date Time Temp Pulse Resp B/P (MAP) Pulse Ox O2 Delivery O2 Flow Rate FiO2 06/29/18 13:08 166/74 06/29/18 12:00 98.9 65 18 166/74 (104) 98 06/29/18 10:31 62 174/83 06/29/18 10:19 Room Air 06/29/18 10:15 98.9 62 18 174/83 (113) 100 06/29/18 09:35 98.0 79 16 177/95 100 Room Air 06/29/18 07:10 98.0 66 16 174/74 100 Room Air 06/29/18 05:30 98.0 06/29/18 05:00 98.7 64 16 161/62 100 Room Air 06/29/18 04:00 80 16 Room Air 06/29/18 03:46 97.9 80 16 140/80 98 Room Air Laboratory Tests Test 06/29/18 04:00 06/29/18 04:50 06/29/18 11:45 06/29/18 13:40 White Blood Count 6.4 K/UL (4.8-10.8) Red Blood Count 4.98 M/UL (4.70-6.10) Hemoglobin 15.3 G/DL (14.2-18.0) Hematocrit 45.9 % (42.0-52.0) Mean Corpuscular Volume 92 FL (80-99) Mean Corpuscular Hemoglobin 30.7 PG (27.0-31.0) Mean Corpuscular Hemoglobin Concent 33.3 G/DL (32.0-36.0) Red Cell Distribution Width 11.0 % (11.6-14.8) L Platelet Count 178 K/UL (150-450) Mean Platelet Volume 10.2 FL (6.5-10.1) H Neutrophils (%) (Auto) 62.2 % (45.0-75.0) Lymphocytes (%) (Auto) 27.9 % (20.0-45.0) Monocytes (%) (Auto) 6.5 % (1.0-10.0) Eosinophils (%) (Auto) 2.4 % (0.0-3.0) Basophils (%) (Auto) 1.1 % (0.0-2.0) Erythrocyte Sedimentation Rate 9 MM/HR (0-20) Prothrombin Time 10.3 SEC (9.30-11.50) Prothromb Time International Ratio 1.0 (0.9-1.1) Activated Partial Thromboplast Time 24 SEC (23-33) Sodium Level 138 MMOL/L (136-145) Potassium Level 3.1 MMOL/L (3.5-5.1) L Chloride Level 99 MMOL/L (98-107) Carbon Dioxide Level 24 MMOL/L (21-32) Anion Gap 15 mmol/L (5-15) Blood Urea Nitrogen 20 mg/dL (7-18) H Creatinine 0.9 MG/DL (0.55-1.30) Estimat Glomerular Filtration Rate > 60 mL/min (>60) Glucose Level 127 MG/DL (74-106) H Calcium Level 9.3 MG/DL (8.5-10.1) Total Bilirubin 1.1 MG/DL (0.2-1.0) H Direct Bilirubin 0.5 MG/DL (0.0-0.3) H Aspartate Amino Transf (AST/SGOT) 305 U/L (15-37) H Alanine Aminotransferase (ALT/SGPT) 478 U/L (12-78) H Alkaline Phosphatase 205 U/L (46-116) H Total Creatine Kinase 126 U/L (26-308) Troponin I 0.014 ng/mL (0.000-0.056) Pending Total Protein 8.5 G/DL (6.4-8.2) H Albumin 3.9 G/DL (3.4-5.0) Globulin 4.6 g/dL Albumin/Globulin Ratio 0.8 (1.0-2.7) L Lipase 175 U/L (73-393) Urine Color Pale yellow Urine Appearance Clear Urine pH 7 (4.5-8.0) Urine Specific [place] 1.005 (1.005-1.035) Urine Protein Negative (NEGATIVE) Urine Glucose (UA) Negative (NEGATIVE) Urine Ketones 4+ (NEGATIVE) H Urine Blood Negative (NEGATIVE) Urine Nitrite Negative (NEGATIVE) Urine Bilirubin Negative (NEGATIVE) Urine Urobilinogen Normal MG/DL (0.0-1.0) Urine Leukocyte Esterase Negative (NEGATIVE) Urine Opiates Screen Positive (NEGATIVE) H Urine Barbiturates Screen Negative (NEGATIVE) Phencyclidine (PCP) Screen Negative (NEGATIVE) Urine Amphetamines Screen Negative (NEGATIVE) Urine Benzodiazepines Screen Negative (NEGATIVE) Urine Cocaine Screen Negative (NEGATIVE) Urine Marijuana (THC) Screen Negative (NEGATIVE) Anti-Nuclear Antibody Screen Pending Anti-Mitochondrial Antibody Pending F-Actin IgG Antibody Pending Test 06/29/18 14:20 Hepatitis B Surface Antigen Pending Hepatitis B Surface Antibody Pending Hepatitis Be Antigen Pending Hepatitis C Antibody Pending Schuyler Nair MD Jun 29, 2018 15:09
--- NOTE | 2018-06-29 15:15 | History and Physical Report ---
DATE OF ADMISSION: 06/29/2018 REASON FOR ADMISSION: 1. Abdominal pain. 2. Hyperkalemia. 3. Elevated LFTs. HISTORY OF PRESENT ILLNESS: The patient is a 57-year-old gentleman, who is being admitted for further evaluation and care of abdominal pain. The patient has been seen in the emergency room the last several nights for continued abdominal pain. The patient states two years ago he had an EGD and colonoscopy, which were negative. He continues to have abdominal pain and had one episode of emesis. He does drink alcohol wine with meals. He is requesting narcotics for abdominal pain control. PAST MEDICAL HISTORY: 1. Abdominal pain. 2. Gastritis. PAST SURGICAL HISTORY: 1. EGD. 2. Colonoscopy. ALLERGIES: No Known drug allergies. SOCIAL HISTORY: Does drink alcohol on a regular basis. No tobacco or illicit drug use. FAMILY HISTORY: Noncontributory. PHYSICAL EXAMINATION: VITAL SIGNS: Blood pressure 174/74, respiratory rate 16, pulse 66, temperature 98.0 degrees, 100% oxygen saturation on room air. GENERAL: The patient awake and alert, no overt distress. HEENT: Extraocular muscles intact. No lymphadenopathy noted. CARDIOVASCULAR: S1 and S2. No rubs or gallops. PULMONARY: Clear to auscultation bilaterally. No rales, rhonchi, or wheezes. ABDOMINAL: Nondistended and nontender. EXTREMITY: No edema noted. LABORATORY AND DIAGNOSTIC DATA: Labs dated 06/29/2018, white cell count 6.4 and hemoglobin 15.3. Potassium 3.1 and sodium 138. AST and ALT 305 and 470 respectively, alkaline phosphatase 208. Troponin 0.014. Urinalysis negative. ASSESSMENT AND PLAN: 1. Abdominal pain with elevated liver function tests. At this time, Gastroenterology has been consulted. In addition, hepatitis B and hepatitis C have been ordered. Urine drug screen has also been ordered. The patient had recent colonoscopy and EGD two years ago, which was reportedly negative. Defer management to Gastroenterology. 2. Abdominal pain. Questionable narcotic-seeking behavior. General Surgery to evaluate for any organic etiologies. 3. Deep venous thrombosis prophylaxis with Lovenox. 4. Hypokalemia. The patient has had p.o. potassium supplementation. Ankit Latif MD DR: Sindy JOB#: [id number] CC:
[2018-06-29 16:00] VITALS: BP 142/69
--- NOTE | 2018-06-29 17:46 | Consultation ---
History of Present Illness General Date patient seen: Jun 29, 2018 Chief Complaint: Abdominal Pain Reason for Consultation: Abdominal pain / abnormal lft's Present Illness HPI 57 year old male presented with recurrent epigastric abdominal pain. Currently present for 3 days. +nausea. no significant emesis. no fever or chills. Pain cramping epigastric pain without radiation. Currently improving since admission. Returned to ED and noted to have acutely elevated LFT's. Hx of gastritis. surgery called to evaluate. patient seen, chart reviewed, patient examined. Allergies: Coded Allergies: No Known Allergies (Unverified , 11/23/17) Medication History Scheduled Pantoprazole* (Pantoprazole*), 40 MG ORAL DAILY, (Reported) Sucralfate* (Carafate*), 1 GM ORAL FOUR TIMES A DAY Scheduled PRN Ondansetron (Zofran), 4 MG ORAL Q6H PRN for Nausea & Vomiting Discontinued Medications Acetaminophen With Codeine (T#3) (Tylenol #3 Tab*), 1 TAB ORAL Q8H PRN for For Pain Discontinued Reason: Therapy completed Acetaminophen With Codeine (T#3) (Tylenol #3 Tab*), 1 TAB ORAL Q6HR PRN for For Pain Discontinued Reason: Therapy completed Dicyclomine Hcl* (Dicyclomine Hcl*), 10 MG PO QID Discontinued Reason: Therapy completed Ibuprofen* (Motrin*), 600 MG ORAL THREE TIMES A DAY Discontinued Reason: Therapy completed Lidocaine (Lidoderm), 1 PATCH TOPIC DAILY Discontinued Reason: Therapy completed Methocarbamol* (Robaxin*), 1,000 MG PO TID Discontinued Reason: Therapy completed Metoclopramide Hcl* (Reglan*), 10 MG ORAL THREE TIMES A DAY Discontinued Reason: Therapy completed Ondansetron Odt* (Zofran Odt*), 4 MG ORAL Q6H PRN for Nausea & Vomiting Discontinued Reason: Therapy completed Pantoprazole* (Pantoprazole*), 40 MG ORAL DAILY Discontinued Reason: Therapy completed Patient History History Provided By: Patient, Medical Record, PMD Healthcare decision maker Resuscitation status Full Code Advanced Directive on File Past Medical/Surgical History Past Medical/Surgical History: (1) Gastritis (2) Hepatitis (3) Abdominal pain (4) Hypokalemia Review of Systems All Other Systems: negative except mentioned in HPI Physical Exam General Appearance: no apparent distress, alert Lines, tubes and drains: peripheral HEENT: mucous membranes moist, PERRL Neck: normal inspection Respiratory/Chest: normal breath sounds, no respiratory distress, no accessory muscle use Cardiovascular/Chest: regular rhythm Abdomen: normal bowel sounds, soft, no organomegaly, no mass, tender Extremities: normal inspection, no calf tenderness Skin Exam: warm/dry Neurologic: alert, oriented x 3 Last 24 Hour Vital Signs Date Time Temp Pulse Resp B/P (MAP) Pulse Ox O2 Delivery O2 Flow Rate FiO2 06/29/18 16:00 98.2 69 20 142/69 (93) 95 06/29/18 13:08 166/74 06/29/18 12:00 98.9 65 18 166/74 (104) 98 06/29/18 10:31 62 174/83 06/29/18 10:19 Room Air 06/29/18 10:15 98.9 62 18 174/83 (113) 100 06/29/18 09:35 98.0 79 16 177/95 100 Room Air 06/29/18 07:10 98.0 66 16 174/74 100 Room Air 06/29/18 05:30 98.0 06/29/18 05:00 98.7 64 16 161/62 100 Room Air 06/29/18 04:00 80 16 Room Air 06/29/18 03:46 97.9 80 16 140/80 98 Room Air Laboratory Tests Test 06/29/18 04:00 06/29/18 04:50 06/29/18 11:45 06/29/18 13:40 White Blood Count 6.4 K/UL (4.8-10.8) Red Blood Count 4.98 M/UL (4.70-6.10) Hemoglobin 15.3 G/DL (14.2-18.0) Hematocrit 45.9 % (42.0-52.0) Mean Corpuscular Volume 92 FL (80-99) Mean Corpuscular Hemoglobin 30.7 PG (27.0-31.0) Mean Corpuscular Hemoglobin Concent 33.3 G/DL (32.0-36.0) Red Cell Distribution Width 11.0 % (11.6-14.8) L Platelet Count 178 K/UL (150-450) Mean Platelet Volume 10.2 FL (6.5-10.1) H Neutrophils (%) (Auto) 62.2 % (45.0-75.0) Lymphocytes (%) (Auto) 27.9 % (20.0-45.0) Monocytes (%) (Auto) 6.5 % (1.0-10.0) Eosinophils (%) (Auto) 2.4 % (0.0-3.0) Basophils (%) (Auto) 1.1 % (0.0-2.0) Erythrocyte Sedimentation Rate 9 MM/HR (0-20) Prothrombin Time 10.3 SEC (9.30-11.50) Prothromb Time International Ratio 1.0 (0.9-1.1) Activated Partial Thromboplast Time 24 SEC (23-33) Sodium Level 138 MMOL/L (136-145) Potassium Level 3.1 MMOL/L (3.5-5.1) L Chloride Level 99 MMOL/L (98-107) Carbon Dioxide Level 24 MMOL/L (21-32) Anion Gap 15 mmol/L (5-15) Blood Urea Nitrogen 20 mg/dL (7-18) H Creatinine 0.9 MG/DL (0.55-1.30) Estimat Glomerular Filtration Rate > 60 mL/min (>60) Glucose Level 127 MG/DL (74-106) H Calcium Level 9.3 MG/DL (8.5-10.1) Total Bilirubin 1.1 MG/DL (0.2-1.0) H Direct Bilirubin 0.5 MG/DL (0.0-0.3) H Aspartate Amino Transf (AST/SGOT) 305 U/L (15-37) H Alanine Aminotransferase (ALT/SGPT) 478 U/L (12-78) H Alkaline Phosphatase 205 U/L (46-116) H Total Creatine Kinase 126 U/L (26-308) Troponin I 0.014 ng/mL (0.000-0.056) 0.004 ng/mL (0.000-0.056) Total Protein 8.5 G/DL (6.4-8.2) H Albumin 3.9 G/DL (3.4-5.0) Globulin 4.6 g/dL Albumin/Globulin Ratio 0.8 (1.0-2.7) L Lipase 175 U/L (73-393) Urine Color Pale yellow Urine Appearance Clear Urine pH 7 (4.5-8.0) Urine Specific [place] 1.005 (1.005-1.035) Urine Protein Negative (NEGATIVE) Urine Glucose (UA) Negative (NEGATIVE) Urine Ketones 4+ (NEGATIVE) H Urine Blood Negative (NEGATIVE) Urine Nitrite Negative (NEGATIVE) Urine Bilirubin Negative (NEGATIVE) Urine Urobilinogen Normal MG/DL (0.0-1.0) Urine Leukocyte Esterase Negative (NEGATIVE) Urine Opiates Screen Positive (NEGATIVE) H Urine Barbiturates Screen Negative (NEGATIVE) Phencyclidine (PCP) Screen Negative (NEGATIVE) Urine Amphetamines Screen Negative (NEGATIVE) Urine Benzodiazepines Screen Negative (NEGATIVE) Urine Cocaine Screen Negative (NEGATIVE) Urine Marijuana (THC) Screen Negative (NEGATIVE) Anti-Nuclear Antibody Screen Pending Anti-Mitochondrial Antibody Pending F-Actin IgG Antibody Pending Test 06/29/18 14:20 Hepatitis B Surface Antigen Pending Hepatitis B Surface Antibody Pending Hepatitis Be Antigen Pending Hepatitis C Antibody Pending Height (Feet): 5 Height (Inches): 8.00 Weight (Pounds): 160 Medications Current Medications Medications (Trade) Dose Ordered Sig/Qian Route PRN Reason Start Time Stop Time Status Last Admin Dose Admin Amlodipine Besylate (Norvasc) 10 mg DAILY ORAL 06/29/18 10:15 07/29/18 10:14 06/29/18 10:31 Dextrose (Dextrose 50%) 25 ml Q30M PRN IV Hypoglycemia 06/29/18 10:00 07/29/18 09:59 Dextrose (Dextrose 50%) 50 ml Q30M PRN IV Hypoglycemia 06/29/18 10:00 07/29/18 09:59 Enoxaparin Sodium (Lovenox) 40 mg Q24H SUBQ 06/29/18 11:00 07/29/18 10:59 06/29/18 10:39 Hydralazine HCl (Apresoline) 25 mg Q6H PRN ORAL For High Blood Pressure 06/29/18 10:15 07/29/18 10:14 06/29/18 13:08 Ondansetron HCl (Zofran) 4 mg Q6H PRN IVP Nausea & Vomiting 06/29/18 10:00 07/29/18 09:59 Pantoprazole (Protonix) 40 mg DAILY ORAL 06/30/18 09:00 07/30/18 08:59 Sodium Chloride 1,000 ml @ 75 mls/hr [id number] IVLG 06/29/18 10:46 07/29/18 10:45 06/29/18 10:31 Tramadol HCl (Ultram) 50 mg Q6H PRN ORAL Severe Pain (Pain Scale 7-10) 06/29/18 10:15 07/06/18 10:14 06/29/18 13:09 Assessment/Plan Problem List: (1) Abdominal pain Assessment & Plan: epigastric abdominal pain for a few days. no leukocytosis does not seem to be infectious in nature acutely elevated LFT's ?biliary colic/passed stone Agree with NICOLAS borja for diet trend labs will follow with recs. thank you ICD Codes: R10.9 - Unspecified abdominal pain SNOMED: [id number] Qualifiers: Qualified Codes: R10.13 - Epigastric pain Status: stable Jorge Alberto Dickinson Jun 29, 2018 17:46
--- NOTE | 2018-06-29 19:15 | Consultation ---
DATE OF CONSULTATION: 06/29/2018 CARDIOLOGY CONSULTATION CONSULTING PHYSICIAN: Schuyler Nair M.D. REFERRING PHYSICIAN: Ankit Latif M.D. REASON FOR CONSULTATION: Hypertension and chest pain. HISTORY OF PRESENT ILLNESS: The patient is a 57-year-old gentleman with history of gastroesophageal reflux disease came to the emergency room complaining of abdominal pain. The patient was evaluated for similar issue. The patient had abdominal CT scan. The pain was severe 10/10 over the epigastric, it was nonradiating. The patient reported that endoscopy and colonoscopy was reportedly normal. The patient's blood pressure was also elevated. Cardiology consultation was obtained for further evaluation and management. REVIEW OF SYSTEMS: Review of systems was negative other than what was mentioned in the history of present illness. PAST MEDICAL HISTORY: Includes epigastric pain and hepatitis. FAMILY HISTORY: Noncontributory. SOCIAL HISTORY: Denies smoking or drinking alcohol. PHYSICAL EXAMINATION: VITAL SIGNS: Blood pressure 174/83, pulse is 65, respirations 18, and temperature 98.9. HEAD AND NECK: No JVD. LUNGS: Clear. CARDIOVASCULAR: Regular S1 and S2 with no gallop or murmur. ABDOMEN: Distended and tender. EXTREMITIES: No pitting edema. LABORATORY AND DIAGNOSTIC DATA: White count 6.4, hematocrit 15.2, hematocrit of 46, and platelet count is 178. Sodium 138, potassium 3.1, BUN of 20, creatinine 0.9, and glucose of 127. Troponin is negative. Urine toxicology screen is positive for opiates. Urinalysis show 4+ ketones. ASSESSMENT AND PLAN: 1. Atypical chest pain. The patient's first troponin is negative. EKG showed no acute ischemic changes. We will completely rule out NE protocol. We will follow the patient clinically. We will also get an echocardiogram. 2. Hypertension. Now is on Norvasc 10 mg daily. I will add p.r.n. clonidine to his medical regimen. 3. Abdominal pain, possible pancreatitis and hepatitis. The patient already been evaluated by Dr. Carolina. I will suspect it can be biliary colic, passed stone, cholelithiasis, sudden rise in LFT. HIDA scan and hepatitis workup is pending. Thank you very much for allowing me to participate in the care of this patient. Please do not hesitate to contact me for any questions regarding my evaluation. Sincerely, Schuyler Nair M.D. DR: Baljinder JOB#: [id number] CC:
[2018-06-29 20:00] VITALS: BP 151/69
[2018-06-30] VITALS: BP 155/70
[2018-06-30 02:31] LABS: BASOPHILS % (AUTO) 1.9 % (0.0-2.0); EOSINOPHILS % (AUTO) 4.8 % (0.0-3.0); HEMATOCRIT 40.7 % (42.0-52.0); HEMOGLOBIN 13.8 G/DL (14.2-18.0); LYMPHOCYTES % (AUTO) 25.2 % (20.0-45.0); MEAN CORPUSCULAR VOLUME 92 FL (80-99); MONOCYTES % (AUTO) 9.2 % (1.0-10.0); NEUTROPHILS % (AUTO) 59.1 % (45.0-75.0); PLATELET COUNT 161 K/UL (150-450); RED BLOOD COUNT 4.41 M/UL (4.70-6.10); WHITE BLOOD COUNT 5.7 K/UL (4.8-10.8)
[2018-06-30 02:58] LABS: ALANINE AMINOTRANSFERASE 327 U/L (12-78); ALBUMIN 3.2 G/DL (3.4-5.0); ALBUMIN/GLOBULIN RATIO 0.8 (1.0-2.7); ALKALINE PHOSPHATASE 159 U/L (46-116); ANION GAP 8 mmol/L (5-15); ASPARTATE AMINO TRANSFERASE 120 U/L (15-37); BILIRUBIN,TOTAL 0.7 MG/DL (0.2-1.0); BLOOD UREA NITROGEN 10 mg/dL (7-18); CALCIUM 8.8 MG/DL (8.5-10.1); CARBON DIOXIDE 28 MMOL/L (21-32); CHLORIDE 102 MMOL/L (98-107); CREATININE 0.6 MG/DL (0.55-1.30); POTASSIUM 3.5 MMOL/L (3.5-5.1); SODIUM 138 MMOL/L (136-145)
[2018-06-30 04:00] VITALS: BP 159/77
[2018-06-30 08:00] VITALS: BP 158/79
--- NOTE | 2018-06-30 08:45 | Nephrology Progress Note ---
Assessment/Plan Assessment/Plan A/P 1) Abd Pain- biliary colic, passed stone, cholelithiasis, sudden rise in LFT. HIDA scan and hepatitis workup Appreciate GI and Gen Surgery 2) Chest Pain/Atypical- ECHO 3) HTN- stable 4) DVT prophylaxsis- lovenox Subjective Date patient seen: Jun 30, 2018 Time patient seen: 08:43 ROS Limited/Unobtainable: No Gastrointestinal/Abdominal: Reports: abdominal pain Allergies: Coded Allergies: No Known Allergies (Unverified , 11/23/17) All Systems: reviewed and negative except above Subjective Patient little better today. Abd pain improved Objective Last 24 Hour Vital Signs Date Time Temp Pulse Resp B/P (MAP) Pulse Ox O2 Delivery O2 Flow Rate FiO2 06/30/18 04:00 97.8 60 20 159/77 (104) 99 06/30/18 00:00 98.4 61 20 155/70 (98) 97 06/29/18 23:43 98.4 06/29/18 21:00 Room Air 06/29/18 20:00 98.6 66 20 151/69 (96) 97 06/29/18 16:00 98.2 69 20 142/69 (93) 95 06/29/18 13:08 166/74 06/29/18 12:00 98.9 65 18 166/74 (104) 98 06/29/18 10:31 62 174/83 06/29/18 10:19 Room Air 06/29/18 10:15 98.9 62 18 174/83 (113) 100 06/29/18 09:35 98.0 79 16 177/95 100 Room Air Intake and Output 06/29/18 06/30/18 19:00 07:00 Intake Total 500 ml 1350 ml Balance 500 ml 1350 ml Intake Oral 500 ml 600 ml IV Total 750 ml # Voids 3 5 Laboratory Tests 06/29/18 11:45: Urine Opiates Screen PositiveH, Urine Barbiturates Screen Negative, Phencyclidine (PCP) Screen Negative, Urine Amphetamines Screen Negative, Urine Benzodiazepines Screen Negative, Urine Cocaine Screen Negative, Urine Marijuana (THC) Screen Negative 06/29/18 13:40: Troponin I 0.004, Anti-Nuclear Antibody Screen [Pending], Anti-Mitochondrial Antibody [Pending], F-Actin IgG Antibody [Pending] 06/29/18 14:20: Hepatitis B Surface Antigen [Pending], Hepatitis B Surface Antibody [Pending], Hepatitis Be Antigen [Pending], Hepatitis C Antibody [Pending] 06/29/18 20:05: Troponin I 0.005 06/30/18 02:00: Troponin I 0.005 06/30/18 02:27: White Blood Count 5.7, Red Blood Count 4.41L, Hemoglobin 13.8L, Hematocrit 40.7L , Mean Corpuscular Volume 92, Mean Corpuscular Hemoglobin 31.2H, Mean Corpuscular Hemoglobin Concent 33.9, Red Cell Distribution Width 11.0L, Platelet Count 161, Mean Platelet Volume 10.3H, Neutrophils (%) (Auto) 59.1, Lymphocytes (%) (Auto) 25.2, Monocytes (%) (Auto) 9.2, Eosinophils (%) (Auto) 4.8H, Basophils (%) (Auto) 1.9, Sodium Level 138, Potassium Level 3.5, Chloride Level 102, Carbon Dioxide Level 28, Anion Gap 8, Blood Urea Nitrogen 10, Creatinine 0.6, Estimat Glomerular Filtration Rate > 60, Glucose Level 114H, Calcium Level 8.8, Total Bilirubin 0.7, Aspartate Amino Transf (AST/SGOT) 120H, Alanine Aminotransferase (ALT/SGPT) 327H, Alkaline Phosphatase 159H, Total Protein 7.3, Albumin 3.2L, Globulin 4.1, Albumin/Globulin Ratio 0.8L Height (Feet): 5 Height (Inches): 8.00 Weight (Pounds): 160 General Appearance: no apparent distress, alert Neck: normal alignment, supple Cardiovascular: normal rate, regular rhythm Respiratory/Chest: normal breath sounds Abdomen: non tender, soft Edema: no edema noted Arm (L), no edema noted Arm (R), no edema noted Leg (L), no edema noted Leg (R), no edema noted Pedal (L), no edema noted Pedal (R), no edema noted Generalized Ankit Latif MD Jun 30, 2018 08:45
[2018-06-30] MEDS ORDERED: Morphine Sulfate 2mg/ml Inj IVP SCH (09:00)
[2018-06-30] MEDS: traMADol 50mg tab ORAL PRN ×2 (09:30→20:48)
[2018-06-30] MEDS: Enoxaparin 40mg Inj SUBQ SCH (10:37)
--- NOTE | 2018-06-30 11:30 | Consultation ---
DATE OF CONSULTATION: 06/29/2018 GASTROENTEROLOGY CONSULTATION CHIEF COMPLAINT: I was asked to see this patient by Dr. Ankit Latif for evaluation of abdominal issues. HISTORY OF PRESENT ILLNESS: The patient is a pleasant 57-year-old male who comes into the hospital and being admitted for abdominal pain. The patient had an admission in November for similar issues. At that time, he underwent imaging with ultrasound and CT scan. Ultrasound showed Henao sign and gallbladder sludge. CT scan did not show any other acute findings. The patient was advised to see his primary physician and apparently he is being referred to a fuse cup expander or perhaps a surgeon, and the workup, according to the patient, was slow and now the pain has returned and he has come to the emergency room three times a row at [facility] where he was finally admitted. CT scan showed some mild inflammatory changes. The patient had developed right upper quadrant abdominal pain on admission, although at this time he just received narcotic treatment and he is essentially pain free at the time of my examination. The patient did have some episodes of vomiting at home, but no diarrhea. He drinks perhaps one alcoholic beverage a week and does not smoke. He has had history of gastroesophageal reflux for which he is on Protonix. He states he had endoscopy and colonoscopy about two years ago in [facility], which was unremarkable. PAST MEDICAL HISTORY: History of gastroesophageal reflux disease, history of cholelithiasis, hypertension. ALLERGIES: None. MEDICATIONS: Noted and reconciled. FAMILY HISTORY: Noncontributory. SOCIAL HISTORY: The patient does not smoke and drinks occasionally. REVIEW OF SYSTEMS: Otherwise negative. PHYSICAL EXAMINATION: GENERAL: Pleasant male, in no distress. HEENT: Normocephalic and atraumatic. Sclerae anicteric. Oropharynx clear. NECK: Supple. CHEST: Clear to auscultation. CARDIOVASCULAR: Revealed a regular rate. ABDOMEN: Soft. Good bowel sounds. There is some mild epigastric tenderness without guarding or rebound. EXTREMITIES: No edema. LABORATORY DATA: Noted. ASSESSMENT: This patient has epigastric area and right upper quadrant pain and on examination had right upper tenderness, although on my examination, his symptoms were markedly diminished since he just received narcotics. Nonetheless, there is a dramatic rise in his liver tests which were normal two days ago to normal and now being markedly elevated and this rapid rise in the setting of stones is highly suggestive of biliary stone disease. The patient should be seen by a animal nutrition consultant to determine his candidacy for cholecystectomy. In the meantime, I will order a HIDA to evaluate the function of gallbladder. If necessary, MRCP to be done to clear the bile ducts. RECOMMENDATIONS: 1. Check HIDA scan. 2. Cautious oral intake. 3. Follow up laboratory parameters and exam 4. surgical evaluation Thank you for asking me to participate in care of this patient. Any Carolina M.D. DR: Heath JOB#: [id number] CC: ANABEL
--- NOTE | 2018-06-30 12:21 | General Surgery Progress Note ---
General Surgery-Progress Note Subjective Symptoms: improved, pain absent, passing flatus Additional Comments no acute events. pending HIDA today Objective Last 24 Hour Vital Signs Date Time Temp Pulse Resp B/P (MAP) Pulse Ox O2 Delivery O2 Flow Rate FiO2 06/30/18 10:00 98.7 06/30/18 09:30 60 158/79 06/30/18 09:00 Room Air 06/30/18 08:00 98.7 60 18 158/79 (105) 99 06/30/18 04:00 97.8 60 20 159/77 (104) 99 06/30/18 00:00 98.4 61 20 155/70 (98) 97 06/29/18 21:00 Room Air 06/29/18 20:00 98.6 66 20 151/69 (96) 97 06/29/18 16:00 98.2 69 20 142/69 (93) 95 06/29/18 13:08 166/74 I&O Intake and Output 06/29/18 06/30/18 19:00 07:00 Intake Total 500 ml 1350 ml Balance 500 ml 1350 ml Intake Oral 500 ml 600 ml IV Total 750 ml # Voids 3 5 Drains: none Cardiovascular: RSR Respiratory: clear Abdomen: soft, flat, non-tender, present bowel sounds Extremities: no tenderness, no cyanosis Laboratory Tests Test 06/29/18 13:40 06/29/18 14:20 06/29/18 20:05 06/30/18 02:00 Troponin I 0.004 ng/mL (0.000-0.056) 0.005 ng/mL (0.000-0.056) 0.005 ng/mL (0.000-0.056) Anti-Nuclear Antibody Screen Pending Anti-Mitochondrial Antibody Pending F-Actin IgG Antibody Pending Hepatitis B Surface Antigen Pending Hepatitis B Surface Antibody Pending Hepatitis Be Antigen Pending Hepatitis C Antibody Pending Test 06/30/18 02:27 White Blood Count 5.7 K/UL (4.8-10.8) Red Blood Count 4.41 M/UL (4.70-6.10) L Hemoglobin 13.8 G/DL (14.2-18.0) L Hematocrit 40.7 % (42.0-52.0) L Mean Corpuscular Volume 92 FL (80-99) Mean Corpuscular Hemoglobin 31.2 PG (27.0-31.0) H Mean Corpuscular Hemoglobin Concent 33.9 G/DL (32.0-36.0) Red Cell Distribution Width 11.0 % (11.6-14.8) L Platelet Count 161 K/UL (150-450) Mean Platelet Volume 10.3 FL (6.5-10.1) H Neutrophils (%) (Auto) 59.1 % (45.0-75.0) Lymphocytes (%) (Auto) 25.2 % (20.0-45.0) Monocytes (%) (Auto) 9.2 % (1.0-10.0) Eosinophils (%) (Auto) 4.8 % (0.0-3.0) H Basophils (%) (Auto) 1.9 % (0.0-2.0) Sodium Level 138 MMOL/L (136-145) Potassium Level 3.5 MMOL/L (3.5-5.1) Chloride Level 102 MMOL/L (98-107) Carbon Dioxide Level 28 MMOL/L (21-32) Anion Gap 8 mmol/L (5-15) Blood Urea Nitrogen 10 mg/dL (7-18) Creatinine 0.6 MG/DL (0.55-1.30) Estimat Glomerular Filtration Rate > 60 mL/min (>60) Glucose Level 114 MG/DL (74-106) H Calcium Level 8.8 MG/DL (8.5-10.1) Total Bilirubin 0.7 MG/DL (0.2-1.0) Aspartate Amino Transf (AST/SGOT) 120 U/L (15-37) H Alanine Aminotransferase (ALT/SGPT) 327 U/L (12-78) H Alkaline Phosphatase 159 U/L (46-116) H Total Protein 7.3 G/DL (6.4-8.2) Albumin 3.2 G/DL (3.4-5.0) L Globulin 4.1 g/dL Albumin/Globulin Ratio 0.8 (1.0-2.7) L Plan Problems: (1) Abdominal pain Assessment & Plan: epigastric abdominal pain for a few days. no leukocytosis does not seem to be infectious in nature acutely elevated LFT's ?biliary colic/passed stone Agree with NICOLAS borja for diet trend labs will follow with recs. thank you Jorge Alberto Dickinson Jun 30, 2018 12:21
[2018-06-30 13:30] VITALS: BP 134/80
--- NOTE | 2018-06-30 13:59 | Cardiology Report ---
APPROVED REPORT EXAM: Two-dimensional and M-mode echocardiogram with Doppler and color Doppler. INDICATION Chest Pain M-Mode DIMENSIONS IVSd1.5 (0.7-1.1cm)Left Atrium (MM)3.8 (1.6-4.0cm) LVDd4.4 (3.5-5.6cm)Aortic Root3.5 (2.0-3.7cm) PWd1.3 (0.7-1.1cm)Aortic Cusp Exc.2.0 (1.5-2.0cm) LVDs3.0 (2.5-4.0cm) PWs1.7 cm Normal left ventricular chamber size, systolic function and wall motion. Left ventricular ejection fraction estimated to be 60-65 %. Mild left ventricular hypertrophy. Anterior Echo-free space, may be due to pericardial fat or effusion. All other cardiac chamber sizes are within normal limits. Focal aortic valve sclerosis with adequate cusp excursion. Thickened mitral valve leaflets with normal excursion. Mild mitral annulus and aortic root calcification. Normal pulmonic valve structure. Normal tricuspid valve structure. IVC is normal in size with physiological collapse. A color flow and spectral Doppler study was performed and revealed: No aortic insufficiency. Trace mitral regurgitation. reduced left ventricular relaxation c/w impaired relaxation diastolic dysfunction. Trace tricuspid regurgitation. Tricuspid systolic velocities suggests peak right ventricular systolic pressure of 12 mmHg. No pulmonic regurgitation present.
--- NOTE | 2018-06-30 14:23 | Cardiac Electrophysiology PN ---
Assessment/Plan Assessment/Plan 1. Atypical chest pain. Ruled out for CT. EKG showed no acute ischemic changes. Echocardiogram EF 65%. 2. Hypertension.Continue Norvasc 10 mg daily and p.r.n. clonidine 3. Abdominal pain, possible pancreatitis and hepatitis. FU by Dr. Mccurdy. HIDA scan results pending DW RN Subjective Subjective Feeling better. No events. On nonmonitored bed Objective Last 24 Hour Vital Signs Date Time Temp Pulse Resp B/P (MAP) Pulse Ox O2 Delivery O2 Flow Rate FiO2 06/30/18 10:00 98.7 06/30/18 09:30 60 158/79 06/30/18 09:00 Room Air 06/30/18 08:00 98.7 60 18 158/79 (105) 99 06/30/18 04:00 97.8 60 20 159/77 (104) 99 06/30/18 00:00 98.4 61 20 155/70 (98) 97 06/29/18 21:00 Room Air 06/29/18 20:00 98.6 66 20 151/69 (96) 97 06/29/18 16:00 98.2 69 20 142/69 (93) 95 Intake and Output 06/29/18 06/30/18 19:00 07:00 Intake Total 500 ml 1350 ml Balance 500 ml 1350 ml Intake Oral 500 ml 600 ml IV Total 750 ml # Voids 3 5 Laboratory Tests Test 06/29/18 14:20 06/29/18 20:05 06/30/18 02:00 06/30/18 02:27 Hepatitis B Surface Antigen Negative (Negative) Hepatitis B Surface Antibody <3.1 mIU/mL (Immunity>9.9) Hepatitis Be Antigen Pending Hepatitis C Antibody 0.1 s/co ratio (0.0-0.9) Troponin I 0.005 ng/mL (0.000-0.056) 0.005 ng/mL (0.000-0.056) White Blood Count 5.7 K/UL (4.8-10.8) Red Blood Count 4.41 M/UL (4.70-6.10) L Hemoglobin 13.8 G/DL (14.2-18.0) L Hematocrit 40.7 % (42.0-52.0) L Mean Corpuscular Volume 92 FL (80-99) Mean Corpuscular Hemoglobin 31.2 PG (27.0-31.0) H Mean Corpuscular Hemoglobin Concent 33.9 G/DL (32.0-36.0) Red Cell Distribution Width 11.0 % (11.6-14.8) L Platelet Count 161 K/UL (150-450) Mean Platelet Volume 10.3 FL (6.5-10.1) H Neutrophils (%) (Auto) 59.1 % (45.0-75.0) Lymphocytes (%) (Auto) 25.2 % (20.0-45.0) Monocytes (%) (Auto) 9.2 % (1.0-10.0) Eosinophils (%) (Auto) 4.8 % (0.0-3.0) H Basophils (%) (Auto) 1.9 % (0.0-2.0) Sodium Level 138 MMOL/L (136-145) Potassium Level 3.5 MMOL/L (3.5-5.1) Chloride Level 102 MMOL/L (98-107) Carbon Dioxide Level 28 MMOL/L (21-32) Anion Gap 8 mmol/L (5-15) Blood Urea Nitrogen 10 mg/dL (7-18) Creatinine 0.6 MG/DL (0.55-1.30) Estimat Glomerular Filtration Rate > 60 mL/min (>60) Glucose Level 114 MG/DL (74-106) H Calcium Level 8.8 MG/DL (8.5-10.1) Total Bilirubin 0.7 MG/DL (0.2-1.0) Aspartate Amino Transf (AST/SGOT) 120 U/L (15-37) H Alanine Aminotransferase (ALT/SGPT) 327 U/L (12-78) H Alkaline Phosphatase 159 U/L (46-116) H Total Protein 7.3 G/DL (6.4-8.2) Albumin 3.2 G/DL (3.4-5.0) L Globulin 4.1 g/dL Albumin/Globulin Ratio 0.8 (1.0-2.7) L Objective 1. Atypical chest pain. Fiirst troponin is negative. EKG showed no acute ischemic changes. We will completely rule out CT protocol. We will follow the patient clinically. We will also get an echocardiogram. 2. Hypertension. Now is on Norvasc 10 mg daily. I will add p.r.n. clonidine to his medical regimen. 3. Abdominal pain, possible pancreatitis and hepatitis. The patient already been evaluated by Dr. Carolina. I will suspect it can be biliary colic, passed stone, cholelithiasis, sudden rise in LFT. HIDA scan and hepatitis workup is pending. Schuyler Nair MD Jun 30, 2018 14:23
--- NOTE | 2018-06-30 15:22 | Diagnostic Imaging Report ---
Indication: 57-year-old male with abdominal pain, elevated liver function tests Technique: IV administration 5.4 mCi 99m technetium Choletec. Serial images obtained over the liver an upper abdomen for 2 hours. 2 mg of morphine given IV at one. Comparison: Reference made to abdominal ultrasound performed earlier the same day. Findings: Prompt hepatic tracer uptake. Tracer seen within the extrahepatic bile ducts at 16 minutes, and seen to enter the duodenum at 22 minutes. Very faint tracer activity is seen in the region of the gallbladder fossa, but this is seen on the earliest frames, indicating that this is probably just a hepatic lobulation rather than gallbladder. The gallbladder is never conclusively visualized, even after morphine administration. Impression: Nonvisualized gallbladder. Note that prior ultrasound as well as earlier ultrasound of 11/23/2017 did not demonstrate any calculi. Findings therefore could represent acalculous cholecystitis, or cholecystitis secondary to occult stone disease. Correlate with clinical findings Patent common bile duct Findings discussed by phone with Dr. Dickinson at the time of interpretation
--- NOTE | 2018-06-30 15:44 | Diagnostic Imaging Report ---
Indication: Abdominal pain Technique: High-scale and duplex images of the upper abdomen were obtained. Doppler interrogation of the hepatic and pancreatic vessels Comparison: 11/23/2017 Findings: Gallbladder is unremarkable, without stones, wall thickening, nor pericholecystic fluid. Previously reported gallbladder sludge is not evident currently Sonographic Henao's sign is negative. Common bile duct measures 6 mm in diameter. No intrahepatic biliary ductal dilatation. Liver demonstrates diffusely mildly increased echogenicity, not evident previously. Multiple cysts are demonstrated, within the right and left hepatic lobe Portal vein and hepatic veins are patent. Pancreas is unremarkable. Spleen is unremarkable. Left kidney measures 10.7 cm in length. Right kidney measures 11.9 cm length. Both kidneys demonstrate normal echogenicity. There is no hydronephrosis. No focal abnormality . Abdominal aorta is partially obscured by bowel gas, visualized portions are non-aneurysmal . Impression: Negative for gallstones or dilated ducts. Note that previously demonstrated gallbladder sludge is no longer evident Equivocally slightly increased hepatic echogenicity, if real suggestive of hepatocellular disease, otherwise nonspecific as regards etiology. Fatty change a possibility. Incidental finding multiple hepatic cysts Note incomplete visualization of the abdominal aorta
[2018-06-30 16:00] VITALS: BP 150/75
[2018-06-30 20:00] VITALS: BP 142/77
[2018-07-01] VITALS (13 sets, daily range): BP systolic 115–159; BP diastolic 61–82
--- NOTE | 2018-07-01 08:27 | Nephrology Progress Note ---
Assessment/Plan Assessment/Plan A/P 1) Abd Pain-HIDA -acalculous cholecystitis, or cholecystitis secondary to occult stone disease. Await surgery evaluation 2) Chest Pain/Atypical- per cardiology. Resolved, EF 65% 3) HTN- stable 4) DVT prophylaxsis- lovenox Subjective Date patient seen: Jul 01, 2018 Time patient seen: 08:25 ROS Limited/Unobtainable: No Allergies: Coded Allergies: No Known Allergies (Unverified , 11/23/17) All Systems: reviewed and negative except above Subjective Patient better today. Abd pain resolved Objective Last 24 Hour Vital Signs Date Time Temp Pulse Resp B/P (MAP) Pulse Ox O2 Delivery O2 Flow Rate FiO2 07/01/18 08:12 66 136/66 07/01/18 05:46 97.9 70 18 133/72 (92) 99 07/01/18 00:00 98.2 73 18 125/70 (88) 98 06/30/18 21:00 Room Air 06/30/18 20:00 98.6 72 18 142/77 (98) 98 06/30/18 16:00 98.5 67 16 150/75 (100) 94 06/30/18 13:30 98.5 80 16 134/80 (98) 97 06/30/18 10:00 98.7 06/30/18 09:30 60 158/79 06/30/18 09:00 Room Air Intake and Output 06/30/18 07/01/18 18:59 06:59 Intake Total 250 ml 200 ml Balance 250 ml 200 ml Intake Oral 250 ml 200 ml # Voids 3 2 Height (Feet): 5 Height (Inches): 8.00 Weight (Pounds): 160 General Appearance: no apparent distress, alert EENT: normal ENT inspection Neck: normal alignment, supple Cardiovascular: normal rate, regular rhythm Respiratory/Chest: lungs clear, normal breath sounds Abdomen: non tender, soft Edema: no edema noted Arm (L), no edema noted Arm (R), no edema noted Leg (L), no edema noted Leg (R), no edema noted Pedal (L), no edema noted Pedal (R), no edema noted Generalized Ankit Latif MD Jul 01, 2018 08:27
[2018-07-01 09:45] LABS: BASOPHILS % (AUTO) 1.4 % (0.0-2.0); EOSINOPHILS % (AUTO) 6.8 % (0.0-3.0); HEMATOCRIT 42.3 % (42.0-52.0); HEMOGLOBIN 14.3 G/DL (14.2-18.0); LYMPHOCYTES % (AUTO) 24.6 % (20.0-45.0); MEAN CORPUSCULAR VOLUME 92 FL (80-99); MONOCYTES % (AUTO) 9.3 % (1.0-10.0); PLATELET COUNT 169 K/UL (150-450); RED BLOOD COUNT 4.58 M/UL (4.70-6.10); RED CELL DISTRIBUTION WIDTH 10.9 % (11.6-14.8); WHITE BLOOD COUNT 4.5 K/UL (4.8-10.8)
[2018-07-01 10:05] LABS: ANION GAP 9 mmol/L (5-15); BLOOD UREA NITROGEN 18 mg/dL (7-18); CALCIUM 9.3 MG/DL (8.5-10.1); CARBON DIOXIDE 32 MMOL/L (21-32); CHLORIDE 101 MMOL/L (98-107); CREATININE 0.7 MG/DL (0.55-1.30); POTASSIUM 3.2 MMOL/L (3.5-5.1); SODIUM 141 MMOL/L (136-145)
--- NOTE | 2018-07-01 10:59 | General Surgery Progress Note ---
General Surgery-Progress Note Subjective Additional Comments +HIDA Objective Last 24 Hour Vital Signs Date Time Temp Pulse Resp B/P (MAP) Pulse Ox O2 Delivery O2 Flow Rate FiO2 07/01/18 08:12 66 136/66 07/01/18 08:00 99.1 66 18 136/66 (89) 96 07/01/18 05:46 97.9 70 18 133/72 (92) 99 07/01/18 00:00 98.2 73 18 125/70 (88) 98 06/30/18 21:00 Room Air 06/30/18 20:00 98.6 72 18 142/77 (98) 98 06/30/18 16:00 98.5 67 16 150/75 (100) 94 06/30/18 13:30 98.5 80 16 134/80 (98) 97 I&O Intake and Output 06/30/18 07/01/18 19:00 07:00 Intake Total 250 ml 200 ml Balance 250 ml 200 ml Intake Oral 250 ml 200 ml # Voids 3 2 Drains: none Cardiovascular: RSR Respiratory: clear Abdomen: soft, flat, non-tender, present bowel sounds Extremities: no tenderness, no cyanosis Laboratory Tests Test 07/01/18 09:25 White Blood Count 4.5 K/UL (4.8-10.8) L Red Blood Count 4.58 M/UL (4.70-6.10) L Hemoglobin 14.3 G/DL (14.2-18.0) Hematocrit 42.3 % (42.0-52.0) Mean Corpuscular Volume 92 FL (80-99) Mean Corpuscular Hemoglobin 31.3 PG (27.0-31.0) H Mean Corpuscular Hemoglobin Concent 33.9 G/DL (32.0-36.0) Red Cell Distribution Width 10.9 % (11.6-14.8) L Platelet Count 169 K/UL (150-450) Mean Platelet Volume 10.3 FL (6.5-10.1) H Neutrophils (%) (Auto) 58.0 % (45.0-75.0) Lymphocytes (%) (Auto) 24.6 % (20.0-45.0) Monocytes (%) (Auto) 9.3 % (1.0-10.0) Eosinophils (%) (Auto) 6.8 % (0.0-3.0) H Basophils (%) (Auto) 1.4 % (0.0-2.0) Sodium Level 141 MMOL/L (136-145) Potassium Level 3.2 MMOL/L (3.5-5.1) L Chloride Level 101 MMOL/L (98-107) Carbon Dioxide Level 32 MMOL/L (21-32) Anion Gap 9 mmol/L (5-15) Blood Urea Nitrogen 18 mg/dL (7-18) Creatinine 0.7 MG/DL (0.55-1.30) Estimat Glomerular Filtration Rate > 60 mL/min (>60) Glucose Level 137 MG/DL (74-106) H Calcium Level 9.3 MG/DL (8.5-10.1) Plan Problems: (1) Abdominal pain Assessment & Plan: epigastric abdominal pain for a few days. no leukocytosis does not seem to be infectious in nature acutely elevated LFT's ?biliary colic/passed stone +HIDA recommend lap david patient agreed consent will schedule soon npo ivf trend labs will follow with recs. thank you Jorge Alberto Dickinson Jul 01, 2018 10:59
[2018-07-01] MEDS: Enoxaparin 40mg Inj SUBQ SCH (11:00)
--- NOTE | 2018-07-01 16:45 | Cardiac Electrophysiology PN ---
Assessment/Plan Assessment/Plan 1. Atypical chest pain. Ruled out for ME. Likely epigastric pain of Cholecystitis EKG no acute ischemic changes. Echocardiogram EF 65%. 2. Hypertension.Continue Norvasc 10 mg daily and p.r.n. clonidine 3. Abdominal pain, FU by Dr. Carolina and Teena. HIDA scan positive. NPO for Lap Gin today OK top proceed from cardiac stand point DW RN Subjective Subjective NPO for Lap Gin as HIDA was positive Objective Last 24 Hour Vital Signs Date Time Temp Pulse Resp B/P (MAP) Pulse Ox O2 Delivery O2 Flow Rate FiO2 07/01/18 12:00 98.7 64 18 127/68 (87) 96 07/01/18 09:00 Room Air 07/01/18 08:12 66 136/66 07/01/18 08:00 99.1 66 18 136/66 (89) 96 07/01/18 05:46 97.9 70 18 133/72 (92) 99 07/01/18 00:00 98.2 73 18 125/70 (88) 98 06/30/18 21:00 Room Air 06/30/18 20:00 98.6 72 18 142/77 (98) 98 Intake and Output 06/30/18 07/01/18 19:00 07:00 Intake Total 250 ml 200 ml Balance 250 ml 200 ml Intake Oral 250 ml 200 ml # Voids 3 2 Laboratory Tests Test 07/01/18 09:25 White Blood Count 4.5 K/UL (4.8-10.8) L Red Blood Count 4.58 M/UL (4.70-6.10) L Hemoglobin 14.3 G/DL (14.2-18.0) Hematocrit 42.3 % (42.0-52.0) Mean Corpuscular Volume 92 FL (80-99) Mean Corpuscular Hemoglobin 31.3 PG (27.0-31.0) H Mean Corpuscular Hemoglobin Concent 33.9 G/DL (32.0-36.0) Red Cell Distribution Width 10.9 % (11.6-14.8) L Platelet Count 169 K/UL (150-450) Mean Platelet Volume 10.3 FL (6.5-10.1) H Neutrophils (%) (Auto) 58.0 % (45.0-75.0) Lymphocytes (%) (Auto) 24.6 % (20.0-45.0) Monocytes (%) (Auto) 9.3 % (1.0-10.0) Eosinophils (%) (Auto) 6.8 % (0.0-3.0) H Basophils (%) (Auto) 1.4 % (0.0-2.0) Sodium Level 141 MMOL/L (136-145) Potassium Level 3.2 MMOL/L (3.5-5.1) L Chloride Level 101 MMOL/L (98-107) Carbon Dioxide Level 32 MMOL/L (21-32) Anion Gap 9 mmol/L (5-15) Blood Urea Nitrogen 18 mg/dL (7-18) Creatinine 0.7 MG/DL (0.55-1.30) Estimat Glomerular Filtration Rate > 60 mL/min (>60) Glucose Level 137 MG/DL (74-106) H Calcium Level 9.3 MG/DL (8.5-10.1) Objective 1. Atypical chest pain. Fiirst troponin is negative. EKG showed no acute ischemic changes. We will completely rule out ME protocol. We will follow the patient clinically. We will also get an echocardiogram. 2. Hypertension. Now is on Norvasc 10 mg daily. I will add p.r.n. clonidine to his medical regimen. 3. Abdominal pain, possible pancreatitis and hepatitis. The patient already been evaluated by Dr. Carolina. I will suspect it can be biliary colic, passed stone, cholelithiasis, sudden rise in LFT. HIDA scan and hepatitis workup is pending. Schuyler Nair MD Jul 01, 2018 16:45
[2018-07-01] MEDS ORDERED: Bupivacaine w/Epi 0.25% 30ml Vial INJ ONE (17:49)
[2018-07-01] MEDS ORDERED: fentaNYL 100 mcg/2 mL IV ONE (17:55)
[2018-07-01] MEDS ORDERED: Midazolam 2mg/2ml Inj ONE (17:55)
[2018-07-01] MEDS ORDERED: Propofol 200mg/20ml IV ONE (18:02)
[2018-07-01] MEDS ORDERED: Zemuron 50mg/5ml Inj IV ONE (18:08)
[2018-07-01] MEDS ORDERED: Succinylcholine 20mg/ml 10ml vial ONE (18:08)
--- NOTE | 2018-07-01 18:12 | Pre-Procedure Note/Attestation ---
Pre-Procedure Note/Attestation Complete Prior to Procedure Procedure Narrative: lap vs open cholecystectomy Indications for Procedure Pre-Operative Diagnosis: acalculous cholecystitis Attestation I attest that I discussed the nature of the procedure; its benefits; risks and complications; and alternatives (and the risks and benefits of such alternatives ), prior to the procedure, with the patient (or the patient's legal sales representative business courses). I attest that, if there was a reasonable possibility of needing a blood transfusion, the patient (or the patient's legal sales representative business courses) was given the [facility] standardized written summary, pursuant to the Kenny Karyn Blood Safety Act ([place] Health and Safety Code # 1645, as amended). I attest that I re-evaluated the patient just prior to the surgery and that there has been no change in the patient's H&P, except as documented below: Jorge Alberto Dickinson Jul 01, 2018 18:12
[2018-07-01] MEDS ORDERED: NS Irrig 1000ml IRRIG ONE (18:32)
[2018-07-01] MEDS ORDERED: Metoprolol 5mg/5ml Inj ONE (18:43)
[2018-07-01] MEDS ORDERED: Sodium Chloride 10ml vial INJ ONE (18:43)
[2018-07-01] MEDS ORDERED: Glycopyrrolate 0.2mg/ml 1ml Vial ONE (18:43)
[2018-07-01] MEDS ORDERED: Morphine Sulfate 10mg/ml Inj ONE (18:44)
[2018-07-01] MEDS ORDERED: LR 1000ml 1,000 ML IVLG SCH (18:55)
--- NOTE | 2018-07-01 18:55 | Anethesia Preoperative Eval ---
Anesthesia Pre-op PMH/ROS General Date of Evaluation: Jul 01, 2018 Time of Evaluation: 18:08 Anesthesiologist: Adan ASA Score: ASA 2 Mallampati Score Class I : Soft palate, uvula, fauces, pillars visible Class II: Soft palate, uvula, fauces visible Class III: Soft palate, base of uvula visible Class IV: Only hard plate visible Mallampati Classification: Class II Surgeon: Becka Diagnosis: Abdominal pain Surgical Procedure: Cholecystectomy Anesthesia History: none Family History: no anesthesia problems Allergies: Coded Allergies: No Known Allergies (Unverified , 11/23/17) Patient NPO?: Yes NPO Date: Jul 01, 2018 NPO Time: 0900 Past Medical History Cardiovascular: Denies: HTN, CAD, IA, valve dz, arrhythmia, other Pulmonary: Denies: asthma, COPD, TERES[place], other Gastrointestinal/Genitourinary: Denies: GERD, CRI, ESRD, other Neurologic/Psychiatric: Reports: depression/anxiety Endocrine: Denies: DM, hypothyroidism, steroids, other HEENT: Denies: cataract (L), cataract (R), glaucoma, [place] (L), [place] (R), other Hematology/Immune: Denies: anemia, DVT, bleeding disorder, other Musculoskeletal/Integumentary: Denies: OA, RA, DJD, DDD, edema, other PMH Narrative: as above PSxH Narrative: GI procedures Anesthesia Pre-op Phys. Exam Physician Exam Last Vital Signs Date Time Temp Pulse Resp B/P (MAP) Pulse Ox O2 Delivery O2 Flow Rate FiO2 07/01/18 16:00 98.9 71 18 119/64 (82) 97 07/01/18 09:00 Room Air Constitutional: NAD Neurologic: CN 2-12 intact Cardiovascular: RRR, no M/R/G Respiratory: CTA Gastrointestinal: S/NT/ND Airway Exam Mallampati Score: Class II MO: limited Neck: stiff ROM: limited Teeth: missing Dentures: no upper, no lower Anesthesia Pre-op A/P Labs Hematology Test 07/01/18 09:25 White Blood Count 4.5 K/UL (4.8-10.8) L Red Blood Count 4.58 M/UL (4.70-6.10) L Hemoglobin 14.3 G/DL (14.2-18.0) Hematocrit 42.3 % (42.0-52.0) Mean Corpuscular Volume 92 FL (80-99) Mean Corpuscular Hemoglobin 31.3 PG (27.0-31.0) H Mean Corpuscular Hemoglobin Concent 33.9 G/DL (32.0-36.0) Red Cell Distribution Width 10.9 % (11.6-14.8) L Platelet Count 169 K/UL (150-450) Mean Platelet Volume 10.3 FL (6.5-10.1) H Neutrophils (%) (Auto) 58.0 % (45.0-75.0) Lymphocytes (%) (Auto) 24.6 % (20.0-45.0) Monocytes (%) (Auto) 9.3 % (1.0-10.0) Eosinophils (%) (Auto) 6.8 % (0.0-3.0) H Basophils (%) (Auto) 1.4 % (0.0-2.0) Chemistry Test 07/01/18 09:25 Sodium Level 141 MMOL/L (136-145) Potassium Level 3.2 MMOL/L (3.5-5.1) L Chloride Level 101 MMOL/L (98-107) Carbon Dioxide Level 32 MMOL/L (21-32) Anion Gap 9 mmol/L (5-15) Blood Urea Nitrogen 18 mg/dL (7-18) Creatinine 0.7 MG/DL (0.55-1.30) Estimat Glomerular Filtration Rate > 60 mL/min (>60) Glucose Level 137 MG/DL (74-106) H Calcium Level 9.3 MG/DL (8.5-10.1) Studies Pre-op Studies: EKG - Nsr Risk Assessment & Plan Assessment: ASA 2 Plan: GA with ETT Status Change Before Surgery: No Pre-Antibiotics Drug: Ancef 1gr. Given Within 1 Hr of Incision: Yes Time Given: 18:25 Fuad Arellano MD Jul 01, 2018 18:55
[2018-07-01] MEDS ORDERED: Meperidine 50mg/ml Inj(FOR RIGORS ONLY) IV PRN (19:00)
[2018-07-01] MEDS ORDERED: Ketorolac 30mg Inj IV PRN ×2 (19:00→21:00)
[2018-07-01] MEDS ORDERED: Midazolam 2mg/2ml Inj IVP PRN (19:00)
[2018-07-01] MEDS ORDERED: DiphenhydrAMINE 50mg/ml Inj IVP PRN (19:00)
[2018-07-01] MEDS ORDERED: Surgicel 4in x 8in TOPIC ONE (19:02)
[2018-07-01] MEDS ORDERED: Ketorolac 30mg Inj ONE (19:07)
--- NOTE | 2018-07-01 19:19 | Brief Operative Note ---
Immediate Post Operative Note Operative Note Pre-op Diagnosis: acalculous cholecystitis Procedure: lap david Post-op Diagnosis: same as pre-op Surgeon: andrew Anesthesiologist: sarah Anesthesia: general, local Specimen: yes Complications: none Condition: stable Fluids: see records Estimated Blood Loss: minimal Drains: none Implant(s) used?: No Jorge Alberto Dickinson Jul 01, 2018 19:19
--- NOTE | 2018-07-01 19:19 | General Progress Note ---
Assessment/Plan Assessment/Plan Assessment - Recurrent epigastric pain and RUQ TTP - sudden rise in LFT in few days - cholelithiasis - abnormal HIDA - Suspect cholecystitis Recommendations - follow symptoms - follow labs - Surgical intervention Subjective Allergies: Coded Allergies: No Known Allergies (Unverified , 11/23/17) Subjective Feels OK tolerating PO minor abd pain HIDA (+) Objective Last 24 Hour Vital Signs Date Time Temp Pulse Resp B/P (MAP) Pulse Ox O2 Delivery O2 Flow Rate FiO2 07/01/18 16:00 98.9 71 18 119/64 (82) 97 07/01/18 12:00 98.7 64 18 127/68 (87) 96 07/01/18 09:00 Room Air 07/01/18 08:12 66 136/66 07/01/18 08:00 99.1 66 18 136/66 (89) 96 07/01/18 05:46 97.9 70 18 133/72 (92) 99 07/01/18 00:00 98.2 73 18 125/70 (88) 98 06/30/18 21:00 Room Air 06/30/18 20:00 98.6 72 18 142/77 (98) 98 Intake and Output 06/30/18 07/01/18 19:00 07:00 Intake Total 250 ml 200 ml Balance 250 ml 200 ml Intake Oral 250 ml 200 ml # Voids 3 2 Laboratory Tests 07/01/18 09:25: White Blood Count 4.5L, Red Blood Count 4.58L, Hemoglobin 14.3, Hematocrit 42.3 , Mean Corpuscular Volume 92, Mean Corpuscular Hemoglobin 31.3H, Mean Corpuscular Hemoglobin Concent 33.9, Red Cell Distribution Width 10.9L, Platelet Count 169, Mean Platelet Volume 10.3H, Neutrophils (%) (Auto) 58.0, Lymphocytes (%) (Auto) 24.6, Monocytes (%) (Auto) 9.3, Eosinophils (%) (Auto) 6.8H, Basophils (%) (Auto) 1.4, Sodium Level 141, Potassium Level 3.2L, Chloride Level 101, Carbon Dioxide Level 32, Anion Gap 9, Blood Urea Nitrogen 18 , Creatinine 0.7, Estimat Glomerular Filtration Rate > 60, Glucose Level 137H, Calcium Level 9.3 Height (Feet): 5 Height (Inches): 10.00 Weight (Pounds): 150 Objective WDWN NCAT Suppple CTA RRR abd soft no edema Any Carolina MD Jul 01, 2018 19:19
--- NOTE | 2018-07-01 19:39 | Immediate Post-Op Evaluation ---
Immediate Post-Op Evalulation Immediate Post-Op Evalulation Procedure: Laparoscopic cholecystectomy Date of Evaluation: Jul 01, 2018 Time of Evaluation: 19:38 IV Fluids: 1000 Blood Products: none Estimated Blood Loss: 50 Urinary Output: none Blood Pressure Systolic: 143 Blood Pressure Diastolic: 80 Pulse Rate: 78 Respiratory Rate: 20 O2 Sat by Pulse Oximetry: 99 Temperature (Fahrenheit): 97.8 Pain Score (1-10): 1 Nausea: No Vomiting: No Complications none Patient Status: awake, patent, extubated, none Hydration Status: adequate Fuad Arellano MD Jul 01, 2018 19:39
[2018-07-01] MEDS ORDERED: Norco 5mg/325mg tab ORAL PRN (21:00)
[2018-07-01] MEDS ORDERED: Morphine Sulfate 2mg/ml Inj IVP PRN ×2 (21:00)
[2018-07-01] MEDS ORDERED: Milk of Magnesia 30ml Ud ORAL PRN (21:00)
[2018-07-01] MEDS ORDERED: HYDROcodone/Acetamin 10/325 tab ORAL PRN (21:00)
[2018-07-01] MEDS ORDERED: Sennosides 8.6mg tab ORAL PRN (21:00)
[2018-07-01] MEDS: Piperacillin/Tazobactam 3.375 GM in NS 110 ML IVPB SCH (22:15)
--- NOTE | 2018-07-01 22:45 | Operative Note - Dictated ---
DATE OF OPERATION: 07/01/2018 PREOPERATIVE DIAGNOSIS: Acalculous cholecystitis. POSTOPERATIVE DIAGNOSIS: Acalculous cholecystitis. OPERATION PERFORMED: Laparoscopic cholecystectomy. ATTENDING SURGEON: Jorge Alberto Dickinson M.D. MID LEVEL DEVELOPER: None. ANESTHESIOLOGIST: Fuad Arellano M.D. 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 ESTIMATED BLOOD LOSS: Minimal. IV FLUIDS: Please see anesthesia records. COMPLICATIONS: None. DRAINS: None. SPECIMENS: Gallbladder sent to pathology for review. WOUND CLASSIFICATION: Class III. COUNTS: Sponge and needle count correct x2. ANTIBIOTICS: The patient was given 2 g Ancef 1 hour prior to cut time. INDICATIONS FOR PROCEDURE: This is a 57-year-old male who presented to the emergency department at [facility] complaining of abdominal pain with nausea and emesis. Initially, the patient presented prior and had normal labs and workup, and therefore, Was discharged. The patient returned soon after to the emergency department with similar symptoms and at this time was noted to have significantly elevated liver enzymes. Workup was consistent with acute cholecystitis, but acalculous given that no cholelithiasis was identified. A HIDA scan was performed and nonvisualization of the gallbladder was noted identifying an obstruction at the cystic duct indicative and commentary to the diagnosis of acalculous cholecystitis. Given these findings, surgery was indicated and recommended. Risks, benefits, alternatives, and details of the surgery were discussed with the patient in detail, who expressed understanding and consented for surgery. OPERATIVE NOTE: The patient was taken to the operating room and placed on the operating table in supine position with bilateral arms out. All bony prominences were well padded. SCDs were placed. Preoperative time-out was taken identifying the patient, procedure, operative staff, and surgical staff. No Crawford catheter was inserted given the patient voided prior to entering the operating room. SCDs were placed. The patient was given 2 g Ancef IV. General anesthesia was induced. The patient was intubated. The abdomen was clipped, prepped, and draped in standard surgical fashion. An umbilical incision was made using a fresh #11 scalpel. The fascia was elevated and incised and entry into the abdomen was obtained using the open Ayssine technique. A 12 mm Yassine trocar was inserted and the abdomen was insufflated. The patient tolerated the insufflation well. Laparoscope was inserted and the abdomen inspected. No injury from initial trocar placement identified. The patient was placed in the reverse Trendelenburg with left side down position. In evaluating the right upper quadrant, the liver had significant adhesions to the peritoneal lining and was already tented up, and therefore, decision was made to only place 2 ports given that a third lateral port with lateral subcostal port would not help and lysis of adhesions of these liver adhesions to the peritoneal lining and anterior abdominal wall would not be recommended and potentially could cause complication. Secondary trocars were placed under direct visualization beginning with a 12 mm subxiphoid, right epigastric port followed by a midclavicular subcostal 5 mm port. No injury from secondary trocar placement noted. The gallbladder was noted to be significantly distended and was decompressed and serous fluid was evacuated. The gallbladder wall was very thickened and the gallbladder was very intrahepatic. Adhesions of the omentum to the gallbladder were gently dissected down using blunt dissection and the infundibulum was identified. There was significant thickening in the area of the infundibulum and at this time given these findings, decision was made to approach the gallbladder from the top-down. The gallbladder was circumferentially dissected out from its intrahepatic location using electrocautery. As getting closer to the area, was identified to likely be the infundibulum, there was significant edema and the gallbladder was not intrahepatic here and blunt dissection allowed us to see the cystic duct, which was circumferentially dissected out and divided using laparoscopic clips. This was only structure identified entering into the gallbladder that had been taken down from the top-down approach. Following this, just right and medial to the structure was a small cystic artery, which was doubly clipped and divided. Gallbladder was then placed in endoscopic retrieval bag and removed using the umbilical port site. Hemostasis was achieved from the liver bed using electrocautery and both the cystic duct and cystic artery clips were identified to be intact without leakage of bile or bleeding. The small amount of irrigation suction was done until clear. No complications or abnormalities were noted. Two pieces of Surgicel were placed in the liver bed. At this time, we began the conclusion of our procedure. Secondary trocars were removed under direct visualization. The table was flattened out and the abdomen was desufflated followed by removal of the umbilical trocar site. The umbilical trocar site fascia and the epigastric 12 mm port site fascia were closed using [id number] Vicryl sutures. The remaining skin incisions were cleansed and reapproximated using 4-0 Monocryl subcuticular interrupted sutures. Local anesthetic was infiltrated throughout the procedure in the incision site and port sites as necessary for the patient's comfort. Wounds were cleansed and skin glue and Steri-Strips were applied. The patient tolerated the procedure well, was extubated and taken to postanesthetic care unit in stable condition. Jorge Alberto Dickinson M.D. DR: IDALIA JOB#: [id number] CC:
[2018-07-02] VITALS: BP 123/64
[2018-07-02] MEDS: Morphine Sulfate 4mg/ml Inj (IV/IM USE ONLY) IVP PRN ×2 (03:10→07:32)
[2018-07-02 04:00] VITALS: BP 155/86
[2018-07-02 06:26] LABS: HEMATOCRIT 42.7 % (42.0-52.0); HEMOGLOBIN 14.7 G/DL (14.2-18.0); MEAN CORPUSCULAR VOLUME 92 FL (80-99); PLATELET COUNT 191 K/UL (150-450); RED BLOOD COUNT 4.64 M/UL (4.70-6.10); RED CELL DISTRIBUTION WIDTH 10.8 % (11.6-14.8); WHITE BLOOD COUNT 9.1 K/UL (4.8-10.8)
[2018-07-02 06:43] LABS: ANION GAP 9 mmol/L (5-15); BLOOD UREA NITROGEN 16 mg/dL (7-18); CALCIUM 9.2 MG/DL (8.5-10.1); CARBON DIOXIDE 28 MMOL/L (21-32); CHLORIDE 100 MMOL/L (98-107); CREATININE 0.7 MG/DL (0.55-1.30); POTASSIUM 3.8 MMOL/L (3.5-5.1); SODIUM 137 MMOL/L (136-145)
[2018-07-02] MEDS: Piperacillin/Tazobactam 3.375 GM in NS 110 ML IVPB SCH (06:47)
[2018-07-02] MEDS: HydrALAZINE 25mg tab ORAL PRN (06:47)
[2018-07-02 08:00] VITALS: BP 138/76
[2018-07-02] MEDS ORDERED: Docusate 100mg cap ORAL SCH (09:00)
--- NOTE | 2018-07-02 09:35 | Nephrology Progress Note ---
Assessment/Plan Assessment/Plan A/P 1) Abd Pain-s/p choly -acalculous cholecystitis DC yamila in am 2) Chest Pain/Atypical- per cardiology. Resolved, EF 65% 3) HTN- stable 4) DVT prophylaxsis- lovenox Subjective Date patient seen: Jul 02, 2018 Time patient seen: 09:34 ROS Limited/Unobtainable: No Gastrointestinal/Abdominal: Reports: abdominal pain Allergies: Coded Allergies: No Known Allergies (Unverified , 11/23/17) Subjective Patient had choly yesterday. Slight abd tenderness this am Objective Last 24 Hour Vital Signs Date Time Temp Pulse Resp B/P (MAP) Pulse Ox O2 Delivery O2 Flow Rate FiO2 07/02/18 08:44 89 138/76 07/02/18 08:00 Room Air 07/02/18 08:00 98.4 89 16 138/76 (96) 96 07/02/18 06:47 161/72 07/02/18 04:00 98.4 93 17 155/86 (109) 98 07/02/18 03:40 98.0 07/02/18 00:00 98.0 77 19 123/64 (83) 99 07/01/18 21:00 Room Air 07/01/18 20:30 97.4 74 19 115/61 (79) 99 07/01/18 20:20 98.5 70 15 131/73 100 Nasal Cannula 3 07/01/18 20:15 70 15 136/76 100 Nasal Cannula 3 07/01/18 19:59 98.4 68 13 152/82 100 Nasal Cannula 3 07/01/18 19:50 67 14 150/80 100 Nasal Cannula 3 07/01/18 19:42 70 17 159/70 99 Nasal Cannula 3 07/01/18 19:39 78 20 99 07/01/18 19:37 72 14 156/67 100 Simple Mask 6 07/01/18 19:32 98.2 84 17 143/80 100 Simple Mask 6 07/01/18 16:00 98.9 71 18 119/64 (82) 97 07/01/18 12:00 98.7 64 18 127/68 (87) 96 Intake and Output 07/01/18 07/02/18 18:59 06:59 Intake Total 250 ml 2330.0 ml Output Total 51 ml Balance 250 ml 2279.0 ml Intake Oral 250 ml 720 ml IV Total 1610.0 ml Output Urine Total 1 ml Estimated Blood Loss 50 ml # Voids 2 5 Laboratory Tests 07/02/18 05:15: White Blood Count 9.1#, Red Blood Count 4.64L, Hemoglobin 14.7, Hematocrit 42.7 , Mean Corpuscular Volume 92, Mean Corpuscular Hemoglobin 31.7H, Mean Corpuscular Hemoglobin Concent 34.5, Red Cell Distribution Width 10.8L, Platelet Count 191, Mean Platelet Volume 9.4, Neutrophils (%) (Auto) , Lymphocytes (%) (Auto) , Monocytes (%) (Auto) , Eosinophils (%) (Auto) , Basophils (%) (Auto) , Differential Total Cells Counted 100, Neutrophils % ( Manual) 88H, Lymphocytes % (Manual) 7L, Monocytes % (Manual) 2, Eosinophils % ( Manual) 1, Basophils % (Manual) 0, Band Neutrophils 2, Platelet Estimate Adequate, Platelet Morphology Normal, Sodium Level 137, Potassium Level 3.8, Chloride Level 100, Carbon Dioxide Level 28, Anion Gap 9, Blood Urea Nitrogen 16 , Creatinine 0.7, Estimat Glomerular Filtration Rate > 60, Glucose Level 148H, Calcium Level 9.2 Height (Feet): 5 Height (Inches): 10.00 Weight (Pounds): 149 General Appearance: no apparent distress, alert EENT: normal ENT inspection Neck: normal alignment, supple Cardiovascular: normal rate, regular rhythm Respiratory/Chest: lungs clear, normal breath sounds Abdomen: non tender, soft Edema: no edema noted Arm (L), no edema noted Arm (R), no edema noted Leg (L), no edema noted Leg (R), no edema noted Pedal (L), no edema noted Pedal (R), no edema noted Generalized Ankit Latif MD Jul 02, 2018 09:35
--- NOTE | 2018-07-02 10:01 | 48 Hour Post Anesthesia Eval ---
Post Anesthesia Evaluation Procedure: Laparoscopic cholecystectomy Date of Evaluation: Jul 02, 2018 Time of Evaluation: 06:40 Blood Pressure Systolic: 155 0: 86 Pulse Rate: 93 Respiratory Rate: 17 Temperature (Fahrenheit): 98.4 O2 Sat by Pulse Oximetry: 98 Airway: patent Nausea: No Vomiting: No Pain Intensity: 2 Hydration Status: adequate Cardiopulmonary Status: at [place] Mental Status/LOC: patient returned to baseline Post-Anesthesia Complications: 0 Follow-up care needed: N/A - further care as per primary team Radha Nolasco MD Jul 02, 2018 10:01
[2018-07-02] MEDS: Enoxaparin 40mg Inj SUBQ SCH (11:21)
[2018-07-02 12:00] VITALS: BP 147/79
--- NOTE | 2018-07-02 12:14 | Discharge Instructions ---
Discharge Instructions Discharge Instructions Services at Discharge: day care Diet: regular Resume Normal Activity?: Yes Activity: light activity Follow Up Orders Discharge today with 1 week follow up with Primary care doctor For Congestive Heart Failure Reminder Report to your physician any weight gain of 5 pounds or more in one week. Ankit Latif MD Jul 02, 2018 12:14
--- NOTE | 2018-07-02 13:46 | General Progress Note ---
Progress Note Progress Note Surgery: doing great post op. no n/v/f/c. comfortable wounds c/d/i exam benign tolerating diet. ambulatory d/c home f/u 2 weeks wound instructions and post op instructions given to patient Jorge Alberto Dickinson Jul 02, 2018 13:46
[2018-07-02] MEDS ORDERED: Tubing IV Secondary IV ONE (14:52)
--- NOTE | 2018-07-02 17:02 | Cardiology Report ---
APPROVED REPORT EKG Measurement Heart [id number] Normal sinus rhythm Voltage criteria for left ventricular hypertrophy Abnormal ECG
--- NOTE | 2018-07-02 20:44 | General Progress Note ---
Assessment/Plan Assessment/Plan Assessment - Recurrent epigastric pain and RUQ TTP - sudden rise in LFT in few days - cholelithiasis - abnormal HIDA - Suspect cholecystitis - s/p david Recommendations - follow symptoms - follow labs - post op care - d/c planning Subjective Allergies: Coded Allergies: No Known Allergies (Unverified , 11/23/17) Subjective Feels OK POD #1 s/p lap david tolerating PO Objective Last 24 Hour Vital Signs Date Time Temp Pulse Resp B/P (MAP) Pulse Ox O2 Delivery O2 Flow Rate FiO2 07/02/18 12:00 98.3 88 17 147/79 (101) 98 07/02/18 10:01 93 17 98 07/02/18 08:44 89 138/76 07/02/18 08:00 Room Air 07/02/18 08:00 98.4 89 16 138/76 (96) 96 07/02/18 06:47 161/72 07/02/18 04:00 98.4 93 17 155/86 (109) 98 07/02/18 03:40 98.0 07/02/18 00:00 98.0 77 19 123/64 (83) 99 07/01/18 21:00 Room Air Intake and Output 07/01/18 07/02/18 19:00 07:00 Intake Total 250 ml 2330.0 ml Output Total 51 ml Balance 250 ml 2279.0 ml Intake Oral 250 ml 720 ml IV Total 1610.0 ml Output Urine Total 1 ml Estimated Blood Loss 50 ml # Voids 2 5 Laboratory Tests 07/02/18 05:15: White Blood Count 9.1#, Red Blood Count 4.64L, Hemoglobin 14.7, Hematocrit 42.7 , Mean Corpuscular Volume 92, Mean Corpuscular Hemoglobin 31.7H, Mean Corpuscular Hemoglobin Concent 34.5, Red Cell Distribution Width 10.8L, Platelet Count 191, Mean Platelet Volume 9.4, Neutrophils (%) (Auto) , Lymphocytes (%) (Auto) , Monocytes (%) (Auto) , Eosinophils (%) (Auto) , Basophils (%) (Auto) , Differential Total Cells Counted 100, Neutrophils % ( Manual) 88H, Lymphocytes % (Manual) 7L, Monocytes % (Manual) 2, Eosinophils % ( Manual) 1, Basophils % (Manual) 0, Band Neutrophils 2, Platelet Estimate Adequate, Platelet Morphology Normal, Sodium Level 137, Potassium Level 3.8, Chloride Level 100, Carbon Dioxide Level 28, Anion Gap 9, Blood Urea Nitrogen 16 , Creatinine 0.7, Estimat Glomerular Filtration Rate > 60, Glucose Level 148H, Calcium Level 9.2 Height (Feet): 5 Height (Inches): 10.00 Weight (Pounds): 149 Objective WDWN NCAT Suppple CTA RRR abd soft, wound OK no edema Any Carolina MD Jul 02, 2018 20:44
--- NOTE | 2018-07-03 13:03 | Discharge Summary ---
Discharge Summary Discharge Summary _ DATE OF ADMISSION: 06/29/2018 DATE OF DISCHARGE: 07/02/2018 CONSULTANTS: Dr. Any Nair BRIEF HOSPITAL COURSE: Patient is a 57-year-old male, who presented to ED for evaluation and care of abdominal pain. The patient was seen at the emergency room for several nights for continued abdominal pain. He stated 2 years ago he had an EGD and colonoscopy which were negative. Patient had same presentation during admission on November this year with similar issues. At that time, he underwent imaging with ultrasound and CT scan that showed gallbladder sludge and positive Henao sign. CT did not show any acute findings. He presented to ED several times due to abdominal pain. He had an episode of emesis. He drinks wine with meals. He was requesting narcotics for abdominal pain. On evaluation at ED, there were no leukocytosis. Hemoglobin and hematocrit stable. Potassium was 3.1. LFTs were acutely elevated. Lipase normal. ESR was normal. Urinalysis showed ketones. He continued to have severe pain. He was given morphine. He was given IV hydration. He was then admitted for further evaluation. Surgery and GI were called to evaluate. There was a dramatic rise in liver tests, rapid rise was highly suggestive of biliary stone disease. Abdominal ultrasound was negative for gallstones or dilated ducts. Previously demonstrated gallbladder sludge is no longer evident. A HIDA scan showed nonvisualized gallbladder. He complained of chest pain. [employer] was consulted. Troponin was negative. EKG did not show any acute ischemic changes. He was given Norvasc and when necessary hydralazine for blood pressure control. Troponin were negative. He was ruled out for [place]. Echocardiogram done showed ejection fraction of 60-65% with mild left ventricular hypertrophy. On 07/01/2018, he underwent laparoscopic cholecystectomy. He tolerated procedure well. Postoperatively, there was no nausea, no vomiting, no fever or chills. Diet was advanced and was tolerating diet. Incisions were clean dry and intact. He was cleared for discharge home to follow-up in 2 weeks. FINAL DIAGNOSES: Abdominal pain secondary to acalculous cholecystitis, status post laparoscopic cholecystectomy Atypical chest pain, likely epigastric pain from cholecystitis Hypertension Cholelithiasis Transaminitis DISPOSITION: Patient was discharged home. DISCHARGE MEDICATIONS: Refer to Discharge Medication List. DISCHARGE INSTRUCTIONS: Follow up with PCP in a week. Follow-up with Dr. Dickinson in 2 weeks. I have been assigned to dictate discharge summary on this account, and I was not involved in the patient's management. Naima Baez NP Jul 03, 2018 13:03
== END 2018-07-02 14:53 | disposition home or self-care (01) | DRG 263 ==
LOC: EMR 03:54 → EDBEDREQ 05:39 → 3E 06:58 → EDBEDREQ 08:00
PROC: 0FT44ZZ Resection of Gallbladder, Percutaneous Endoscopic Approach (ICD-10-PCS; principal; 2018-07-01 15:30)
DX: K81.0 Acute cholecystitis (principal); E87.6 Hypokalemia; I10 Essential (primary) hypertension; R07.89 Other chest pain; R74.0 Nonspecific elevation of levels of transaminase and lactic acid dehydrogenase [LDH]; K21.9 Gastro-esophageal reflux disease without esophagitis
CPT/HCPCS: 36415; 71045; 76700; 78266; 80048; 80053; 80307; 81003; 82248; 82550; 83690; 84484; 85007; 85025; 85610; 85651; 85730; 86039; 86235; 86256; 86803; 87340; 87350; 87517; 93005; 93306; 94003; 94150; 96361; 96374; 96375; 96376; 99285; J2250; J2405; J8499